=== PATIENT | female | born 1980 | race Caucasian/White ===

== ENCOUNTER 2019-10-27 14:36 | Outpatient (CLI) | payer OTHER, SELFPAY ==
--- NOTE | ~2019-10-27 | MM_ITS ---
EXAMINATION: MM screening kwan BI w marianela HISTORY: Screening mammogram TECHNIQUE: Craniocaudal and mediolateral oblique 3-D tomosynthesis images were obtained and synthetic 2-D images were generated. CAD analysis was submitted and interpreted. COMPARISON: 10/2018 bilateral digital screening mammogram examination 06/13/2017 diagnostic left digital mammogram and limited left breast ultrasound 06/09/2017 bilateral digital screening mammogram examination BREAST PARENCHYMAL COMPOSITION: The breasts are heterogeneously dense, which may obscure small masses . FINDINGS: There is no evidence of suspicious mass, calcification, or architectural distortion to sugg est malignancy in either breast. There has been no suspicious interval change. IMPRESSION: 1. No mammographic evidence of malignancy. 2. Recommend routine screening mammography in one year. BI-RADS Category 1: Negative Reviewed, dictated and finalized at location A.
== END 2019-10-27 14:37 | disposition home or self-care (01) ==
PROVIDERS: PCP Family Medicine; Visit Provider Obstetrics & Gynecology
DX: Z12.31 Encounter for screening mammogram for malignant neoplasm of breast (principal)
CPT/HCPCS: 77063; 77067

== ENCOUNTER 2019-12-25 03:02 | Emergency (ER) | payer OTHER, SELFPAY ==
--- NOTE | ~2019-12-25 | XR_ITS ---
EXAMINATION: XR finger 1st LT min 2V INDICATION: Left first MCP joint dislocation status post reduction TECHNIQUE: Two views of the left first finger are obtained. COMPARISON: 0336 hours FINDINGS: The dorsal dislocation of the first proximal phalanx with respect to the first metacarpal h as been reduced. No fracture is identified. Soft tissue swelling is present. IMPRESSION: 1. Reduced first MCP joint dislocation. No fracture identified. Reviewed, dictated and finalized at location A.
--- NOTE | ~2019-12-25 | XR_ITS ---
EXAMINATION: XR finger 1st LT min 2V INDICATION: Right first finger pain and deformity, initial encounter TECHNIQUE: Two views of the left first finger are obtained. COMPARISON: None available FINDINGS: There is dorsal dislocation of the first proximal phalanx with respect to the first metacar pal. Soft tissue swelling is present. No fracture is identified. IMPRESSION: 1. Dorsal dislocation of the first proximal phalanx with respect to the metacarpal. No fracture ident ified. Reviewed, dictated and finalized at location A. IMPRESSION: 1. Dorsal dislocation of the first proximal phalanx with respect to the metacar pal. No fracture identified.
[2019-12-25 03:05] VITALS: BP 138/98; PULSE 110; RESP 20; TEMP 37; O2SAT 100
--- NOTE | 2019-12-25 03:11 | ED.UPPEXIN ---
HPI - Extremity Injury (Upper) General Chief Complaint: Extremity Injury, Upper Stated Complaint: left thumb injury Time Seen by Provider: 12/25/19 03:07 History of Present Illness HPI narrative: Patient is a 39-year-old female who presents ER with left thumb pain. Patient was some gas at her home who would come over to drink when she injured her thumb. Is an aching pain. No numbness or tingling. There is visible deformity. Related Data Home Medications Medication Instructions Recorded Confirmed ibuprofen 600 mg tablet 600 mg PO TID 06/29/19 melatonin 10 mg capsule PO 06/29/19 Allergies Allergy/AdvReac Type Severity Reaction Status Date / Time No Known Allergies Allergy Verified 12/25/19 03:09 Review of Systems Musculoskeletal: Musculoskeletal: Reports arthralgias and Reports joint swelling Neurologic: Denies focal weakness and Denies numbness PMFSH Social History Social History Smoking status: Former smoker Second hand tobacco smoke exposure: No Alcohol intake: current Drinks per week: 3 Substance use: never Exam Narrative: Exam Narrative: GENERAL: Well-appearing, well-nourished, and in no acute distress. HEAD: Normocephalic, atraumatic. EXTREMITIES: Focused exam left upper extremity shows deformity at the left first MCP with tenderness and no tenderness distal to this. There is no wrist pain or limitation in wrist range of motion. Patient has difficulty with range of motion at the first MCP and has discomfort at the DIP due to first MCP deformity. SKIN: Warm, dry, no rash. NEURO: No focal deficits. Alert and oriented x3. PSYCH: Normal mood and affect. Course Vital Signs Vital signs: Vital Signs Temperature 98.6 F 12/25/19 03:05 Pulse Rate 110 H 12/25/19 03:05 Respiratory Rate 12/25/19 03:05 Blood Pressure 138/98 H 12/25/19 03:05 Pulse Oximetry 100 12/25/19 03:05 Temperature 98.6 F 12/25/19 03:05 Pulse Rate 110 H 12/25/19 03:05 Respiratory Rate 12/25/19 03:05 Blood Pressure 138/98 H 12/25/19 03:05 Pulse Oximetry 100 12/25/19 03:05 Procedures Orthopedic Joint Reduction Joint #1: Orthopedic Joint Reduction Date: 12/25/19 Orthopedic Joint Reduction Time: 03:30 Time Out Performed: No Side: left Joint Reduction Location: finger (thumb) Pre-Procedure Neuro Vascular Exam: normal Technique used: direct manipulation Post-reduction neuro exam: intact Post-reduction vascular: intact Post Reduction X-Ray Obtained: Yes Post Reduction X-Ray Results: reduced Splint Applied: Yes Patient Tolerated Procedure: well Orthopedic Splinting/Casting Injury #1: Splinting/Casting Date: 12/25/19 Side: left Upper Extremity Injury Location: finger (thumb) Splint: customized in ED OCL: thumb spica Pre-Procedure Neuro Vascular Exam: normal Post-Procedure Neuro Vascular Exam: normal MDM - Extremity Injury (Upper) Imaging Data My impression: XR thumb left: Dislocation of MCP XR thumb left reduction: Successful reduction. Discharge Plan Discharge Clinical Impression: Closed dislocation of left thumb Patient Disposition: Home, Self-Care Condition: Stable Instructions: Finger Dislocation (ED) Additional Instructions: Follow-up with orthopedic surgery for further evaluation and to be cleared to go back to work. Return the ER if you suffer new injury, you have a cold blue thumb, you have additional concerns. Prescriptions: New hydrocodone-acetaminophen 5-325 mg tablet 1 tablet PO Q6H PRN (Reason: pain) Qty: 12 RF: 0 No Action Gardasil 9 (PF) 0.5 mL suspension 0.5 ml IM ONCE Qty: 0.5 RF: 2 ibuprofen 600 mg tablet 600 mg PO TID RF: 0 melatonin 10 mg capsule PO RF: 0 Follow-up/Referrals: Riana Scott MD [Primary Care Provider] -
[2019-12-25] MEDS: ONDANSETRON INJ 4 MG/2 ML VIAL (03:36)
[2019-12-25] MEDS: MORPHINE SULFATE 4 MG/ML INJ IV PUSH (03:36)
[2019-12-25 04:24] VITALS: BP 138/90; PULSE 80; RESP 20; O2SAT 98
== END 2019-12-25 04:25 | disposition home or self-care (01) ==
PROVIDERS: Emergency Provider Emergency Medicine; PCP Family Medicine
DX: S63.115A Dislocation of metacarpophalangeal joint of left thumb, initial encounter (principal); Z87.891 Personal history of nicotine dependence; X58.XXXA Exposure to other specified factors, initial encounter
CPT/HCPCS: 26700; 26770; 73140; 99285; J2270; J2405

== ENCOUNTER → 2020-04-26 12:23 | Outpatient (CLI) | payer OTHER, SELFPAY ==
--- NOTE | ~2020-04-26 | XR_ITS ---
EXAMINATION: XR thoracic spine 2V DATE: 04/26/2020 13:01 INDICATION: Dorsalgia unspecified TECHNIQUE: AP, lateral and lateral swimmer's views of the thoracic spine were obtained. COMPARISON: 05/08/2015 FINDINGS: There is no fracture, dislocation, or subluxation. The vertebral body heights are normal. T here is unchanged mild loss of intervertebral disc space height of the lower thoracic spine. Small de generative osteophytes project from the anterior endplates of multiple vertebral bodies. The paravert ebral soft tissues are unremarkable. IMPRESSION: 1. Mild thoracic spondylosis without acute findings or significant interval change. Reviewed, dictated and finalized at location A. LE END SEWER IMPRESSION: 1. Mild thoracic spondylosis without acute findings or significant interval trev e.
--- NOTE | ~2020-04-26 | XR_ITS ---
EXAMINATION: XR hip LT min 2V EXAM DATE: 04/26/2020 13:01 INDICATION: M25.559 - Pain in unspecified hip . TECHNIQUE: Left hip frontal, 'frog leg' projections for interpretation. There is no prior study for comparison. FINDINGS: Smooth left hip femoral head contour, no radiographic evidence of avascular necrosis. Ther e is mild primary osteoarthritis. There are no acute fractures or dislocations identified. There is no subcutaneous gas. The soft tissue is unremarkable. IUD. IMPRESSION: Mild left hip osteoarthritis. Reviewed, dictated and finalized at location B. T CHIEF
--- NOTE | ~2020-04-26 | XR_ITS ---
EXAMINATION: XR lumbar spine 2-3V DATE: 04/26/2020 13:01 INDICATION: Dorsalgia unspecified TECHNIQUE: Anteroposterior and lateral views of the lumbar spine, and cone-down lateral view of the l umbosacral junction were obtained. COMPARISON: 05/03/2014 FINDINGS: There is no fracture, dislocation, or subluxation. Chronic mild loss of intervertebral disc space height at L5-S1 is unchanged. The vertebral body heights are maintained. There is mild facet o steoarthritis of the lower lumbar spine. An IUD is noted in the pelvis. The bowel gas pattern is norm al. IMPRESSION: 1. Mild lumbar spondylosis without acute findings or significant interval change. Reviewed, dictated and finalized at location A. ER WASHER IMPRESSION: 1. Mild lumbar spondylosis without acute findings or significant interval osito martin
== END ==
PROVIDERS: PCP Family Medicine; Visit Provider Physician Assistant
DX: M47.894 Other spondylosis, thoracic region (principal); M47.896 Other spondylosis, lumbar region; M16.12 Unilateral primary osteoarthritis, left hip
CPT/HCPCS: 72070; 72100; 73502

== ENCOUNTER 2021-04-30 10:09 | Outpatient (CLI) | payer OTHER, SELFPAY ==
--- NOTE | ~2021-04-30 | US_ITS ---
EXAMINATION: US abdomen complete EXAM DATE: 04/30/2021 11:15 INDICATION: Abdominal pain. TECHNIQUE: Multiple grayscale and Doppler images of the complete abdomen were obtained (by a technolo gist who performed the scan) and subsequently reviewed. There is no prior study for comparison. FINDINGS: The abdominal aorta is normal in caliber. Visualized portion IVC is patent. The pancreatic head a nd body are normal in appearance. The pancreatic tail is not visualized. The liver has normal echogenicity and contour. There are no focal liver lesions identified. There is no evidence of intrahepatic biliary duct dilation. Portal venous flow was seen in the hepatopedal , normal direction and has normal Doppler waveform. Common bile duct measures 6 mm, which is normal. The gallbladder wall is normal in thickness, with ex pected amount of distention. No sonographic evidence of pericholecystic fluid. There is no cholelit hiases. Technologist performing exam reports patient did not demonstrate sonographic Marquez's sign. Please note that this sign is less reliable in patients who have received pain medication. Right kidney: There is normal contour and echogenicity. It measures 10.3 x 5.3 x 4.6 centimeters. There are no focal renal lesions identified. There is no hydronephrosis. Left kidney: There is normal contour and echogenicity. It measures 10.4 x 4.4 x 5.3 centimeters. T here are no focal renal lesions identified. There is no hydronephrosis. The spleen measures 10.8 centimeters and is morphologically normal. IMPRESSION: 1. Unremarkable complete abdominal ultrasound exam. Reviewed, dictated and finalized at location B. NDARY ENGLISH TEACHER
== END 2021-04-30 10:10 | disposition home or self-care (01) ==
LOC: ANHIMG 10:14
PROVIDERS: PCP Family Medicine; Visit Provider Physician Assistant
DX: R10.9 Unspecified abdominal pain (principal)
CPT/HCPCS: 76700

== ENCOUNTER 2021-06-09 09:08 | Outpatient (CLI) | payer OTHER, SELFPAY ==
--- NOTE | ~2021-06-09 | MM_ITS ---
EXAMINATION: MM screening kwan BI w marianela HISTORY: Screening TECHNIQUE: Craniocaudal and mediolateral oblique 3-D tomosynthesis images were obtained and synthetic 2-D images were generated. CAD analysis was submitted and interpreted. COMPARISON: Comparison to multiple prior studies sequentially, with oldest reviewed study dated 09/2017. BREAST PARENCHYMAL COMPOSITION: The breasts are heterogeneously dense, which may obscure small masses . FINDINGS: There is no evidence of suspicious mass, calcification, or architectural distortion to sugg est malignancy in either breast. There has been no suspicious interval change. IMPRESSION: 1. No mammographic evidence of malignancy. 2. Recommend routine screening mammography in one year. BI-RADS Category 1: Negative Reviewed, dictated and finalized at location A. RESEARCH
== END 2021-06-09 09:09 | disposition home or self-care (01) ==
LOC: ANHIMG 09:09
PROVIDERS: PCP Family Medicine; Visit Provider Student in an Organized Health Care Education/Training Program
DX: Z12.31 Encounter for screening mammogram for malignant neoplasm of breast (principal)
CPT/HCPCS: 77063; 77067

== ENCOUNTER 2021-07-30 14:24 | Outpatient (CLI) | payer OTHER, SELFPAY ==
--- NOTE | ~2021-07-30 | CT_ITS ---
EXAMINATION: CT abdomen pelvis w con EXAM DATE: 07/30/2021 14:57 INDICATION: Intermittent right-sided abdominal pain for couple of years. TECHNIQUE: Spiral CT of the abdomen and pelvis was performed following intravenous injection of 100 m L Omnipaque 350. Axial, coronal and sagittal images of the abdomen and pelvis were reviewed. The do se-length product (DLP) for this examination was 900.30 mGy-cm. The exposure was tailored according to patient size (auto mA exposure control), and iterative reconstruction (ASIR) was used as additiona l dose reduction technique. There is no prior study for comparison. FINDINGS: The liver, spleen, adrenal glands and pancreas are unremarkable. Gallbladder is unremarkab le. No biliary obstruction. Portal and splenic veins are patent. Kidneys enhance symmetrically. T here is no hydronephrosis. The uterus is unremarkable. The bladder is unremarkable. There is no retroperitoneal or pelvic lymphadenopathy. The appendix is normal. The stomach and small bowel are unremarkable. There is expected amount of c olonic stool. No free intraperitoneal gas. The heart is normal in size. There are no pericardial or pleural effusions. The lung bases are unremarkable. Mild lumbar dextroscoliosis. IMPRESSION: No acute intra-abdominal findings. Reviewed, dictated and finalized at location B.
== END 2021-07-30 14:25 | disposition home or self-care (01) ==
PROVIDERS: PCP Family Medicine; Visit Provider Physician Assistant
DX: R10.9 Unspecified abdominal pain (principal)
CPT/HCPCS: 74177; Q9967

== ENCOUNTER → 2021-12-12 14:55 | Outpatient (CLI) | payer OTHER, SELFPAY ==
--- NOTE | ~2021-12-12 | CT_ITS ---
EXAMINATION: CT BRAIN W/O DATE: 12/12/2021 15:09 INDICATION: Blepharospasm of the left eye. Left-sided headache. TECHNIQUE: Computed tomography (CT) of the head was performed without intravenous contrast. The dose- length product was 599.57 mGy-cm. Automated exposure control and iterative reconstruction technique w ere employed. COMPARISON: No prior studies for comparison. FINDINGS: Normal brain parenchymal volume for age. Normal fulton-white differentiation. No acute intrac ranial hemorrhage, infarction, mass or mass effect. No ventriculomegaly or midline shift. Midline sagittal images demonstrate a normal corpus callosum, c raniovertebral junction and sella turcica. Basilar cisterns are patent. Paranasal sinuses and mastoids are pneumatized. No depressed skull fractures. IMPRESSION: 1. No acute intracranial abnormality. Reviewed, dictated and finalized at location A.
== END ==
PROVIDERS: PCP Family Medicine; Visit Provider Physician Assistant
DX: G24.5 Blepharospasm (principal)
CPT/HCPCS: 70450

== ENCOUNTER 2022-01-31 07:19 | Outpatient (CLI) | payer OTHER, SELFPAY ==
[2022-01-31 08:07] LABS: Beta HCG Quantitative < 2.39 mIU/ML
== END 2022-01-31 07:20 | disposition home or self-care (01) ==
PROVIDERS: PCP Family Medicine; Visit Provider Student in an Organized Health Care Education/Training Program
DX: Z30.431 Encounter for routine checking of intrauterine contraceptive device (principal)
CPT/HCPCS: 36415; 84702

== ENCOUNTER 2022-09-18 09:01 | Outpatient (CLI) | payer OTHER, SELFPAY ==
--- NOTE | ~2022-09-18 | MM_ITS ---
EXAMINATION: MM screening kwan BI w marianela HISTORY: Screening mammogram TECHNIQUE: Craniocaudal and mediolateral oblique 3-D tomosynthesis images were obtained and synthetic 2-D images were generated. CAD analysis was submitted and interpreted. COMPARISON: 06/09/2021, 10/27/2019, 10/06/2018 BREAST PARENCHYMAL COMPOSITION: The breasts are heterogeneously dense, which may obscure small masses . FINDINGS: RIGHT BREAST: There is possible architectural distortion in the posterior third of the right breast b est appreciated in line with the nipple axis on the craniocaudal view near the posterior fibroglandul ar margin. LEFT BREAST: No suspicious mass, calcification, or architectural distortion are identified to suggest malignancy. There has been no suspicious interval change. IMPRESSION: 1. Possible right breast architectural distortion. 2. Additional mammographic views and possible breast ultrasound are recommended. BI-RADS Category 0: Incomplete: Needs additional imaging evaluation. Reviewed, dictated and finalized at location A. IMPRESSION: 1. Possible right breast architectural distortion. 2. Additional mammographic views and possible breast ultrasound are recommended . BI-RADS Category 0: Incomplete: Needs additional imaging evaluation.
== END 2022-09-18 09:02 | disposition home or self-care (01) ==
LOC: ANHIMG 09:02
PROVIDERS: PCP Family Medicine; Visit Provider Registered Nurse
DX: Z12.31 Encounter for screening mammogram for malignant neoplasm of breast (principal); R92.8 Other abnormal and inconclusive findings on diagnostic imaging of breast
CPT/HCPCS: 77063; 77067

== ENCOUNTER 2022-09-24 09:47 | Outpatient (CLI) | payer OTHER, SELFPAY ==
--- NOTE | ~2022-09-24 | MMUS_ITS ---
EXAMINATION: MM diagnostic kwan RT w marianela, US breast RT limited HISTORY: Possible right breast architectural distortion on screening mammogram TECHNIQUE: Additional 3-D tomosynthesis images of the right breast were performed and synthetic 2-D i mages were generated. CAD analysis was submitted and interpreted. High resolution limited right breas t ultrasound was performed. COMPARISON: 09/18/2022, 06/09/2021, 10/27/2019, 10/06/2018 FINDINGS: MAMMOGRAPHIC FINDINGS: There is persistent architectural distortion with possible obscured mass in the posterior third of th e upper breast at the 12:00 location approximately 11 cm from the nipple. ULTRASOUND: There is a 9 mm x 6 mm oval, parallel, hypoechoic mass with indistinct margins at the 1:00 location 9 cm from the nipple. No posterior features or internal vascularity are identified. There is a probabl e cluster of microcysts measuring 6 mm at the 11:00 location, 7 cm from the nipple. IMPRESSION: 1. Indeterminate mass of the posterior right breast. 2. Ultrasound-guided biopsy is recommended. BI-RADS category 4, suspicious findings. Reviewed, dictated and finalized at location A. IMPRESSION: 1. Indeterminate mass of the posterior right breast. 2. Ultrasound-guided biopsy is recommended. BI-RADS category 4, suspicious findings.
== END 2022-09-24 09:48 | disposition home or self-care (01) ==
LOC: CHSIMG 09:48
PROVIDERS: PCP Family Medicine; Visit Provider Registered Nurse
DX: R92.8 Other abnormal and inconclusive findings on diagnostic imaging of breast (principal)
CPT/HCPCS: 76642; 77061; 77065; G0279

== ENCOUNTER 2022-10-28 09:02 | Outpatient (CLI) | payer OTHER, SELFPAY ==
--- NOTE | ~2022-10-28 | MMUS_ITS ---
EXAMINATION: US GUIDED NEEDLE BIOPSY DATE: 10/28/2022 11:17 CDT INDICATION: 9 x 6 mm oval parallel hypoechoic mass with indistinct margins reported at 1:00 9 cm from nipple (09/24/2022 limited right breast ultrasound) TECHNIQUE AND FINDINGS: The risks and potential benefits of the procedure were discussed with the patient, and written inform ed consent was obtained. Timeout procedure was performed. After sterile preparation of the right jarek st, 1% lidocaine was utilized for local anesthesia. A 12 G spring-loaded biopsy gun needle was advanced to the edge of the region of interest from a late ral approach utilizing sonographic guidance. A total of 2 tissue core samples were obtained through the lesion. The lesion disappeared after the biopsy, with no remaining trace, suggesting this was a c yst. A hydrogel marker was then placed at the biopsy site. Hemostasis was achieved. A sterile bandage was applied. The patient tolerated procedure well and there was no evidence of immediate complication. The patien t was given verbal instructions prior to departing from the department. A two view mammogram was perf ormed to document tissue marker clip placement. The tissue samples were submitted to surgical patholo gy for histologic analysis. IMPRESSION: Ultrasound guided biopsy of right 1:00 breast mass (likely cyst) with biopsy marker placement. Please refer to pathology report for histologic analysis. Reviewed, dictated and finalized at Location A. Reviewed, dictated and finalized at location A. IMPRESSION: Ultrasound guided biopsy of right 1:00 breast mass (likely cyst) with biopsy ma rker placement. Please refer to pathology report for histologic analysis.
== END 2022-10-28 09:03 | disposition home or self-care (01) ==
PROVIDERS: PCP Family Medicine; Visit Provider Surgery
DX: R92.8 Other abnormal and inconclusive findings on diagnostic imaging of breast (principal); N60.11 Diffuse cystic mastopathy of right breast
CPT/HCPCS: 19083; 88305

== ENCOUNTER 2023-04-01 13:55 | Outpatient (CLI) | payer OTHER, SELFPAY ==
--- NOTE | ~2023-04-01 | US_ITS ---
US breast RT limited DATE: 04/01/2023 14:52 INDICATION: Short-term follow-up of previously biopsied 9 x 6 mm oval hypoechoic mass with indistinct margins at 1:00 9 cm from nipple, with benign cyst diagnosis and pathology TECHNIQUE: Real-time imaging targeted at 1:00 9 cm from nipple, with color flow imaging COMPARISON: 10/28 2022 right ultrasound-guided breast biopsy 09/24/2022 limited right breast ultrasound FINDINGS: There is a residual approximately 4 x 7 mm hypoechoic lesion remaining with a biopsy marker centrally located. There is no internal vascularity or suspicious posterior shadowing. IMPRESSION: Diminished size of previously biopsied 1:00 lesion 9 cm from nipple, with tissue marker c lip. No suspicious vascularity or suspicious shadowing. Reviewed, dictated and finalized at Location A. Reviewed, dictated and finalized at location A. HT SHIFTER IMPRESSION: Diminished size of previously biopsied 1:00 lesion 9 cm from nipple , with tissue marker clip. No suspicious vascularity or suspicious shadowing.
== END 2023-04-01 13:56 | disposition home or self-care (01) ==
PROVIDERS: PCP Family Medicine; Visit Provider Surgery
DX: R92.8 Other abnormal and inconclusive findings on diagnostic imaging of breast (principal)
CPT/HCPCS: 76642

== ENCOUNTER 2023-07-10 14:27 | Outpatient (CLI) | payer OTHER, SELFPAY ==
--- NOTE | ~2023-07-10 | CT_ITS ---
EXAMINATION: CT brain wo con DATE: 07/10/2023 14:40 INDICATION: Headache, unspecified. TECHNIQUE: Computed tomography (CT) of the head was performed without intravenous contrast. The mA wa s adjusted according to patient size. Iterative reconstruction technique was employed. The dose-lengt h product was 645.69 mGy-cm. COMPARISON: Head CT 12/12/2021 FINDINGS: There is no intracranial hemorrhage, acute infarction, or abnormal intracranial mass lesion . The ventricles are normal in size. There are likely changes of ocular lens replacement surgeries. T he paranasal sinuses are clear. The mastoid air cells are normal. IMPRESSION: 1. Normal brain. Reviewed, dictated and finalized at location E. NICAL HEALTHCARE CONSULTANT IMPRESSION: 1. Normal brain.
== END 2023-07-10 14:28 ==
LOC: GOSHIMG 14:29
PROVIDERS: PCP Family Medicine; Visit Provider Physician Assistant Medical
DX: R51.9 Headache, unspecified (principal)
CPT/HCPCS: 70450

== ENCOUNTER 2023-10-20 06:43 | Outpatient (CLI) | payer OTHER, SELFPAY ==
--- NOTE | ~2023-10-20 | MR_ITS ---
EXAMINATION: MR brain/brain stem wo/w con DATE: 10/20/2023 07:31 INDICATION: Headache. TECHNIQUE: Magnetic resonance imaging (MRI) of the brain and brainstem was performed without and with 15 mL MultiHance intravenous contrast. COMPARISON: Head CT 07/10/2023 FINDINGS: There is no intracranial hemorrhage, acute infarction, or abnormal intracranial mass lesion . The ventricles are normal in size. There are likely changes of ocular lens replacement surgeries. T he paranasal sinuses are clear. The mastoid air cells are normal. IMPRESSION: 1. Normal brain. Reviewed, dictated and finalized at location E. IMPRESSION: 1. Normal brain.
== END 2023-10-20 06:44 | disposition home or self-care (01) ==
PROVIDERS: PCP Family Medicine
DX: R51.9 Headache, unspecified (principal)
CPT/HCPCS: 70553; A9577

== ENCOUNTER 2024-03-25 14:52 | Outpatient (CLI) | payer OTHER, SELFPAY ==
--- NOTE | ~2024-03-25 | MM_ITS ---
EXAMINATION: MM screening kwan BI w marianela HISTORY: Screening mammography. Prior right-sided breast biopsy yielding benign results. Exogenous hormone replacement. TECHNIQUE: Craniocaudal and mediolateral oblique 3-D tomosynthesis images were obtained and synthetic 2-D images were generated. CAD analysis was submitted and interpreted. COMPARISON: Examination was compared with multiple prior studies, performed most recently on 3 and dating back to 10/27/2019 BREAST PARENCHYMAL COMPOSITION: Heterogeneously dense FINDINGS: Microclip within the lower inner right breast consistent with patient's history. Punctate calcifications are detected bilaterally, stable and benign in appearance. Stable parenchymal pattern without suspicious microcalcifications, architectural distortion, discrete masses or significant asymmetry. IMPRESSION: 1. No mammographic evidence of malignancy. 2. Recommend routine screening mammography in one year. BI-RADS Category 2: Benign findings. Reviewed, dictated and finalized at location A. TER INSPECTOR
== END 2024-03-25 14:53 | disposition home or self-care (01) ==
LOC: ANHIMG 14:53
PROVIDERS: PCP Family Medicine; Visit Provider Obstetrics & Gynecology
DX: Z12.31 Encounter for screening mammogram for malignant neoplasm of breast (principal)
CPT/HCPCS: 77063; 77067

== ENCOUNTER 2024-05-22 10:23 | Outpatient (CLI) | payer OTHER, SELFPAY ==
--- NOTE | 2024-05-22 10:54 | ECG_ITS ---
Test Date: 2024-05-22 11:23:11 Measurements Intervals [place] Rate: 70 P: -5 ME: 144 QRS: 5 QRSD: 93 T: 11 QT: 379 QTc: 409 Interpretive Statements SINUS RHYTHM LOW QRS VOLTAGE IN PRECORDIAL LEADS [QRS DEFLECTION < 1.0 mV IN CHEST LEADS] No previous ECG available for comparison Electronically Signed On 05-23-2024 09:54:57 HAM SMOKER by Tod Delarosa M.D.
[2024-05-22 11:28] LABS: Add Urine Microscopic? YES; Appearance Urine Clear (Clear); Bacteria Urine None Seen /hpf; Bilirubin Urine Negative (Negative); Blood Urine 3+ (Negative); Color Urine Yellow (Yellow); Glucose Urine UA Negative (Negative); Ketones Urine Negative (Negative); Leukocyte Esterase Ur Trace LEU/UL (Negative); Nitrate Urine Negative (Negative); Non Pathogenic Casts 0-2; Protein Urine Negative (Negative); RBC Urine 21-50 /hpf (0-2); Specific Grav Ur 1.022 (1.001-1.035); Squamous Epithelial Cell Urine None Seen /hpf (Few); Urobilinogen Urine 0.2 mg/dL (<2.0); WBC Urine 0-5 /hpf (0-3)
[2024-05-22 11:30] LABS: Basophils Absolute Auto 0.1 K/mm3 (0.0-0.1); Basophils Percent Auto 1.2 % (0.2-1.2); Eosinophils Absolute Auto 0.1 K/mm3 (0-0.3); Eosinophils Percent Auto 2.1 % (0-4.4); Hematocrit 41.5 % (37.0-47.0); Hemoglobin 13.7 g/dL (12.0-15.0); Immature Granulocyte Absolute 0.01 K/mm3 (0.00-0.031); Immature Granulocyte Percent A 0.2 % (0-0.5); Lymphocytes Absolute Auto 2.35 K/mm3 (0.9-3.2); Mean Corpuscular Hemoglobin 31.3 pg (26-34); Mean Corpuscular Volume 94.7 fl (80-100); Mean Platelet Volume 9.9 fl (7.4-10.4); Monocytes Absolute Auto 0.4 K/mm3 (0.1-0.6); Monocytes Percent Auto 7.3 % (2.6-8.5); Neutrophils Absolute Auto 2.8 K/mm3 (1.3-6.7); Neutrophils Percent Auto 48.2 % (45.5-73.1); Platelet Count Result 287 k/mm3 (150-375); Red Blood Count 4.38 M/mm3 (4.2-5.4); White Blood Count 5.7 K/mm3 (4.5-10.0)
[2024-05-22 11:45] LABS: Alanine Aminotransferase 14 U/L (6-35); Alkaline Phosphatase 50 U/L (38-126); Anion Gap 5 mmol/L (4-12); Aspartate Amino Transferase 17 U/L (14-36); Bilirubin,Total 0.6 mg/dL (0.2-1.3); Blood Urea Nitrogen 13 mg/dL (7-17); Carbon Dioxide 29 mmol/L (22-30); Chloride 104 mmol/L (98-107); Estimated Glomerular Filt Rate > 60; Glucose 77 mg/dL (65-110); Potassium 4.4 mmol/L (3.4-5.0); Sodium 138 mmol/L (137-145)
--- OUTSIDE RECORDS SUMMARY | 2024-05-27 08:50 | XMS_ITS | Clinical Summary ---
Author Organization [facility] Address [address] [place] [address] Phone Care Team Providers Care Shoe Fitter Name Role Phone Riana Scott MD Primary Care Provider [phone] Allergies No known active allergies Medications medroxyPROGEST ERone (DEPO-PROVERA) 150 mg/mL Syringe Inject 150 mL by intramuscular injection. 2 Active Virt-Jeannette 2.2-25-1 mg Tablet Take 1 Tablet by mouth 2 times daily. 2 Active Active Problems No known active problems Family History Medical History Relation Name Comments Cancer Mother Relation Name Status Comments Mother Social History Tobacco Use Types Packs/Day Years Used Date Smoking Tobacco: Former Cigarettes Q uit: 2016 Smokeless Tobacco: Never Tobacco Cessation:Counseling Given: No Alcohol Use Standard Drinks/Week Comments Yes 0 (1 standard drink = 0.6 oz pur e alcohol) 6-7 drinks every couple weeks Comments Unknown Sex and Gender Information Value Date Recorded Sex Assigned at Not on file Legal Sex Female 3:16 PM CDT Gender Identity Not on file Sexual Orientation Not on file Last Filed Vital Signs Vital Sign Reading Time Taken Comments Blood Pressure 169/111 03/27/2022 11:30 AM [facility] Pulse 86 03/27/2022 11:30 AM [facility] Temperature - - Respiratory Rate - - Oxygen Saturation - - Inhaled Oxygen Concentration - - Weight 97.5 kg (215 lb) 03/27/2022 11:30 AM [facility] Height 160 cm (5' 3 ) 03/27/2022 11:30 AM [facility] Body Mass Index 38.09 03/27/2022 11:30 AM [facility] Plan of Treatment Health Maintenance Due Date Last Done Comments DTAP/TDAP/TD VACCINES (1 - Tdap) 1997 HEPATITIS B VACCINES (1 of 3 - 19+ 3-dose series) 1997 CERVICAL CANCER SCREENING 2008 BREAST CANCER SCREENING 2018 COLORECTAL SCREENING 2023 Colorectal Cancer Screening 2023 FIT-DNA Q 3 years 2023 FIT/FOBT Q 1 year 2023 Flex Sig/CT Colonography Q 5 years 2023 INFLUENZA VACCINE (#1) 2023 HPV VACCINES Aged Out No longer eligi ble based on patient's age to complete this topic PNEUMOCOCCAL VACCINE 0-64 YEARS Aged Out No longer eligible based on patient's age to complete this topic Insurance [facility] [id number] POS II Care Teams Shoe Fitter Relationship Specialty Start Date End Date Riana Scott MD [address] [place] [address] PCP - General Family Practice 03/27/22
--- OUTSIDE RECORDS SUMMARY | 2024-05-27 08:50 | XMS_ITS | Referral Summary ---
Author Organization [facility] Address [address] [place] [address] Care Team Providers Care Shipwright Helper Name Role Phone Riana Scott MD Primary Care Provider [phone] Paige Drew Kahnton OD Unavailable [phone] Verena Rand FILTROSE CRUSHER Unavailable Encounters Date Type Department Care Team Description 05/03/2024 1:36 PM LAB HEAD - 05/03/2024 11:59 PM LAB HEAD Hospital Encounter [facility] [address] [place] [address] Rad, Amh Fluoro Right shoulder pain, unspecified chronicity Discharge Disposition: Discharge to home or self care 05/03/2024 1:37 PM LAB HEAD - 05/03/2024 11:59 PM LAB HEAD Hospital Encounter [facility] [address] [place] [address] Right shoulder pain, unspecified chronicity Discharge Disposition: Discharge to home or self care 04/13/2024 Telephone [facility] [address] [place] [address] Outpatient Health [address] [place] [phone] Callie Kent MD 04/05/2024 Telephone [facility] [address] [place] [address] [phone] Callie Kent MD 03/26/2024 11:00 AM LAB HEAD Lab [facility] [address] [place] [address] [place] [address] Visual disturbances 03/26/2024 8:45 AM LAB HEAD Office Visit [facility] [address] [phone] Callie Kent MD Visual disturbances (Primary Dx); Anomalous optic nerve (HCC); Frequent headaches; Unspecified disorder of visual pathways; Encounter for observation for other suspected diseases and conditions ruled out 03/26/2024 8:20 AM LAB HEAD Imaging Exam [facility] [address] [place] [phone] Optic disc edema (Primary Dx); Frequent headaches; Unspecified disorder of visual pathways; Encounter for observation for other suspected diseases and conditions ruled out 03/18/2024 Telephone [facility] [address] [place] [address], [address] [place] [address] Callie Kent MD from Last 3 Months Allergies No known active allergies Medications oxyBUTYnin XL (DITROPAN-XL) 10 mg 24 hr tablet Take 1 tablet (10 mg total) by mouth daily 12/08/2023 Active tirzepatide (MOUNJARO) 12.5 mg/0.5 mL pen injector Inject 12.5 mg under the skin every 7 days Active Active Problems Problem Noted Date Diagnosed Date Visual disturbances 03/26/2024 Assessment & Plan (03/26/2024 12:04 PM LAB HEAD): Assessment: - Follow-up from 01/07/24 for vision changes OU, reported as blurry vision and seeing dark spots OU. 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 - Excellent afferent function today - RNFL thickness stable OD (116>116) and improved OS (113>101) but could be inter-testing variability especially given stable appearance of the nerves today - No subjective improvement in vision on Topiramate Plan: - Discontinue Topiramate given lack of subjective improvement and subjective vision complaints that are not convincingly attributable to papilledema - Return to clinic in 3-4 months for OCT RNFL and HVF 24-2 OU Frequent headaches 03/26/2024 Assessment & Plan (03/26/2024 11:58 AM LAB HEAD): Assessment: - Likely a component of migraine's and medication overuse - Currently using ibuprofen daily - MRI brain w wo at OSH unremarkable Plan: - Decrease ibuprofen use as medication overuse may be contributing - Evaluation for obstructive sleep apnea; to be arranged by patient's PCP Social History Tobacco Use Types Packs/Day Years Used Date Smoking Tobacco: Never Assessed Comments Unknown Sex and Gender Information Value Date Recorded Sex Assigned at Not on file Legal Sex Female 3:02 AM LAB HEAD Gender Identity Not on file Sexual Orientation Not on file Plan of Treatment Not on file Procedures Procedure Name Priority Date/Time Associated Diagnosis Comments MRI SHOULDER ARTHROGRAM RIGHT W CONTRAST Schedule Routine, Read Routine (OP Routine) 05/03/2024 3:11 PM LAB HEAD Right shoulder pain, unspecified chronicity INJECTION SHOULDER RIGHT ARTHRO ONLY Schedule Routine, Read Routine (OP Routine) 05/03/2024 2:35 PM LAB HEAD Right shoulder pain, unspecified chronicity COPPER, SERUM Routine 03/26/2024 11:03 AM LAB HEAD Visual disturbances FOLATE Routine 03/26/2024 11:03 AM LAB HEAD Visual disturbances METHYLMALONIC ACID, SERUM Routine 03/26/2024 11:03 AM LAB HEAD Visual disturbances VITAMIN B1 Routine 03/26/2024 11:03 AM LAB HEAD Visual disturbances VITAMIN B12 Routine 03/26/2024 11:03 AM LAB HEAD Visual disturbances VITAMIN A Routine 03/26/2024 11:03 AM LAB HEAD Visual disturbances CBC WITHOUT DIFFERENTIAL Routine 03/26/2024 11:03 AM LAB HEAD Visual disturbances IRON PROFILE W/ IBC Routine 03/26/2024 1 1:03 AM LAB HEAD Visual disturbances TOXOPLASMA ANTIBODIES IGG AND IGM Routine 03/26/2024 11:03 AM LAB HEAD Visual disturbances BARTONELLA ANTIBODY PANEL Routine 03/26/2024 11:03 AM LAB HEAD Visual disturbances OCT, RETINA - OU - BOTH EYES Routine 03/26/2024 8:47 AM LAB HEAD Frequent headaches Unspecified disorder of visual pathways Encounter for observation for other suspected diseases and conditions ruled out OCT, OPTIC NERVE - OU - BOTH EYES Routine 03/26/2024 8:47 AM LAB HEAD Frequent headaches Unspecified disorder of visual pathways Encounter for observation for other suspected diseases and conditions ruled out from Last 3 Months Results * MRI Shoulder Arthrogram Right W Contrast (05/03/2024 3:11 PM LAB HEAD) Anatomical Region Laterality Modality Upper Extremities Right Magnetic Reson ance 05/04/2024 5:29 AM LAB HEAD Narrative 05/04/2024 5:37 AM LAB HEAD EXAM DESCRIPTION: MRI SHOULDER ARTHROGRAM RIGHT W CONTRAST REASON FOR STUDY: RIGHT SHOULDER PAIN ?? Pt injured RT shoulder at work approx 1 month ago. Pain with lifting and outstretching arm. ? TECHNIQUE: Multiplanar, multisequence MRI of the ??right ??shoulder was performed ??with intra-articular contrast. Details of the arthrogram injection are dictated separately. ?? COMPARISON: 05/03/2024 FINDINGS: There is a type 1 acromion. The coracoacromial ligament is thin. There is mild acromioclavicular joint osteoarthritis. ??Small distal clavicular erosion with marrow edema is noted. ??Contrast in the subacromial subdeltoid bursa is injection related. The rotator cuff muscle bulk is normal. The subscapularis is intact. The biceps tendon is located within the bicipital groove. The supraspinatus and infraspinatus cuff tendons are intact without evidence of a discrete tear. On this arthrographic evaluation, the bicipital anchor is intact. ??There is a posterior glenoid labral tear extending from approximately 10:30-7:30. There is mild glenohumeral joint chondrosis. ??There are no loose bodies. ?? IMPRESSION: Intact right rotator cuff. Posterior right glenoid labral tear extending from approximately 10:30-7:30. Mild right acromioclavicular joint osteoarthritis with a small distal clavicular erosion and marrow edema. This can be associated with superimposed mild distal clavicular osteolysis. Mild right glenohumeral joint chondrosis. THIS IS AN ELECTRONICALLY VERIFIED FINAL REPORT 05/04/2024 5:37 AM - Electronically signed by ??Rodrigo Bae M.D. MF: [email or web address] D: ??05/04/2024 5:37 AM T: ??05/04/2024 5:37 AM Report ID: [id number] Reading Location: ??[id number] Procedure Note Rodrigo Bae MD - 05/04/2024 EXAM DESCRIPTION: MRI SHOULDER ARTHROGRAM RIGHT W CONTRAST REASON FOR STUDY: RIGHT SHOULDER PAIN Pt injured RT shoulder at work approx 1 month ago. Pain with lifting and outstretching arm. TECHNIQUE: Multiplanar, multisequence MRI of the right shoulder was performed with intra-articular contrast. Details of the arthrograminjection are dictated separately. COMPARISON: 05/03/2024 FINDINGS: There is a type 1 acromion. The coracoacromial ligament is thin. There ismild acromioclavicular joint osteoarthritis. Small distal clavicular erosionwith marrow edema is noted. Contrast in the subacromial subdeltoid bursa is injection related. The rotator cuff muscle bulk is normal. The subscapularis is intact. The biceps tendon is located within the bicipital groove. The supraspinatusand infraspinatus cuff tendons are intact without evidence of a discretetear. On this arthrographic evaluation, the bicipital anchor is intact. Thereis a posterior glenoid labral tear extending from approximately 10:30-7:30.There is mild glenohumeral joint chondrosis. There are no loose bodies. IMPRESSION: Intact right rotator cuff. Posterior right glenoid labral tear extending from [id number]:30-7:30. Mild right acromioclavicular joint osteoarthritis with a small distal clavicular erosion and marrow edema. This can be associated withsuperimposed mild distal clavicular osteolysis. Mild right glenohumeral joint chondrosis. THIS IS AN ELECTRONICALLY VERIFIED FINAL REPORT 05/04/2024 5:37 AM - Electronically signed by Rodrigo Bae M.D. MF: [email or web address] Report ID: [id number] Reading Location: [place] [address] Scott Ontiveros MD IMG MRI PROCEDURES Final Re sult * Injection Shoulder Right Arthro Only (05/03/2024 2:35 PM LAB HEAD) Anatomical Region Laterality Modality Shoulder Right Radio Fluoroscop y 05/04/2024 5:37 AM LAB HEAD Narrative 05/04/2024 5:37 AM LAB HEAD EXAMINATION: ?? Right ??joint injection for arthrography Fluoroscopic guidance for needle placement HISTORY: Right shoulder pain , pre ??MR ??arthrogram TECHNIQUE: The risks, benefits and alternatives were discussed with the patient. ??Informed consent was obtained. ??Prior to beginning the procedure, [place] Protocol was performed to confirm the patient's identity and the planned procedure. The patient was placed on the fluoroscopy table. ??The ??right glenohumeral ?? joint was localized with fluoroscopic guidance. ??The skin was prepped and draped in a standard sterile fashion. ??Using sterile technique, a ??20 ??mL solution was prepared consisting of ??10 ??mL of a 1:100 dilution of Dotarem gadolinium contrast in sterile saline and ??10 ??mL ??Omnipaque 240 . Local anesthesia was achieved with subcutaneous injection of 1% lidocaine 2 mL. ??A 22-gauge needle was then introduced into the joint under fluoroscopic guidance. The intra-articular position of the needle was confirmed with injection of ??12 ??mL of the 1:200 gadolinium contrast, injected with intermittent fluoroscopic visualization. The patient was then transferred to the ??MR ??suite. There are were no immediate complications. RADIATION DOSE: Dose Area Product: ??0.0634 ?? mGym2 dose Area Product (DAP) FINDINGS: Fluoroscopic images confirm intra-articular position of the needle tip with subsequent filling of the joint space. ?? The results of the ??MR ??arthrogram are reported separately. IMPRESSION: Right shoulder ??joint injection under fluoroscopic guidance for ??MR ?? arthrography. ?? THIS IS AN ELECTRONICALLY VERIFIED FINAL REPORT 05/04/2024 5:37 AM - Electronically signed by ??Rodrigo Bae M.D. MF: [email or web address] D: ??05/04/2024 5:37 AM T: ??05/04/2024 5:37 AM Report ID: [id number] Reading Location: ??[id number] Procedure Note Rodrigo Bae MD - 05/04/2024 EXAMINATION: Right joint injection for arthrography Fluoroscopic guidance for needle placement HISTORY: Right shoulder pain , pre MR arthrogram TECHNIQUE: The risks, benefits and alternatives were discussed with the patient. Informed consent was obtained. Prior to beginning theprocedure, [place] Protocol was performed to confirm the patient's identity and the planned procedure. The patient was placed on the fluoroscopy table. The right glenohumeral joint was localized with fluoroscopic guidance. The skin was prepped and draped in a standard sterile fashion. Using sterile technique, a 20 mL solution was prepared consisting of 10 mL of a 1:100 dilution of Dotarem gadolinium contrast in sterile saline and 10 mL Omnipaque 240 . Local anesthesia was achieved with subcutaneous injection of 1% lidocaine2 mL. A 22-gauge needle was then introduced into the joint underfluoroscopic guidance. The intra-articular position of the needle was confirmed with injection of 12 mL of the 1:200 gadolinium contrast, injected with intermittent fluoroscopic visualization. The patient was then transferred to the MR suite. There are were no immediate complications. RADIATION DOSE: Dose Area Product: 0.0634 mGym2 dose Area Product (DAP) FINDINGS: Fluoroscopic images confirm intra-articular position of the needle tipwith subsequent filling of the joint space. The results of the MR arthrogram are reported separately. IMPRESSION: Right shoulder joint injection under fluoroscopic guidance for MR arthrography. THIS IS AN ELECTRONICALLY VERIFIED FINAL REPORT 05/04/2024 5:37 AM - Electronically signed by Rodrigo Bae M.D. MF: ISA Report ID: [id number] Reading Location: [id number] Scott Ontiveros MD IMG XR PROCEDURES Final Res ult * Toxoplasma antibodies, IgG and IgM Blood (03/26/2024 11:03 AM LAB HEAD) Toxoplasma IgG Negative Negative Comment: Interpretive Data Negative - ??No detectable antibody. Equivocal - Presence of detectable antibody cannot be determined. Positive - ??Detectable level of antibody present. Current interpretive data was last revised on 2017. Toxoplasma IgM Negative Negative [facility] Blood 03/26/2024 11:0 3 AM LAB HEAD 03/26/2024 12:41 PM LAB HEAD Callie Kent MD LAB MICROBIOLOGY - GENERAL ORDERABLES Final Result [facility] Department [place] [address] * Iron profile w/ IBC (03/26/2024 11:03 AM LAB HEAD) Pathologist [facility] Iron 59 35 - 145 mcg/dL TIBC 272 250 - 400 mcg/dL [facility] Transferrin saturation 22 20 - 50 % [facility] Blood 03/26/2024 11:0 3 AM LAB HEAD 03/26/2024 12:41 PM LAB HEAD us Callie Kent MD LAB BLOOD ORDERABLES Final Result Performing Organization Address [facility] [place] [address] * Methylmalonic acid, serum (03/26/2024 11:03 AM LAB HEAD) MMA 0.12 <=0.40 nmol/mL [facility] Comment: ADDITIONAL INFORMATION This test was developed and its performance characteristics determined by [facility] in a manner consistent with CLIA requirements. This test has not been cleared or approved by the U.S. Food and Drug Administration. Test Performed by: [facility] [place] [address] Service Agent: Izabela Wellington Ph.D.; CLIA# [id number] Blood 03/26/2024 11:0 3 AM LAB HEAD 03/26/2024 2:25 PM LAB HEAD us Callie Kent MD LAB BLOOD ORDERABLES Final Result Performing Organization Address [facility] de Phone Number ZELDA [facility] [place] [address] [facility] * Copper, serum (03/26/2024 11:03 AM LAB HEAD) Copper 100 77 - 206 mcg/dL [facility] Comment: ADDITIONAL INFORMATION This test was developed and its performance characteristics determined by [facility] in a manner consistent with CLIA requirements. This test has not been cleared or approved by the U.S. Food and Drug Administration. Test Performed by: [facility] [address] [place] [address] Service Agent: Izabela Wellington Ph.D.; CLIA# [id number] Blood 03/26/2024 11:0 3 AM LAB HEAD 03/26/2024 12:53 PM LAB HEAD Narrative [facility] - 03/27/2024 2:32 PM LAB HEAD [place] blue top tube. No additives. Callie Kent MD LAB BLOOD ORDERABLES Final Result Performing Organization Address City/[facility]/ZIP Co de Phone Number [facility] [place] [address] [facility] * Bartonella antibody panel Blood (03/26/2024 11:03 AM LAB HEAD) [facility] B Henselae, IgG <1:128 <1:128 titer [facility] B Henselae, IgM <1:20 <1:20 titer [facility] B. Elizabeth, IgG <1:128 <1:128 titer [facility] B. Elizabeth, IgM <1:20 <1:20 titer [facility] Comment: ADDITIONAL INFORMATION This test was developed and its performance characteristics determined by [facility] in a manner consistent with CLIA requirements. This test has not been cleared or approved by the U.S. Food and Drug Administration. Test Performed by: [facility] [place] [address] Service Agent: Izabela Wellington Ph.D.; CLIA# [id number] Blood 03/26/2024 11:0 3 AM LAB HEAD 03/26/2024 2:25 PM LAB HEAD us Callie Kent MD LAB MICROBIOLOGY - GENERAL ORDERABLES Final Result Performing Organization Address City/[facility] Co de Phone Number [facility] [place] [place] [address] [facility] * Vitamin A (03/26/2024 11:03 AM LAB HEAD) Pathologist [facility] Vitamin A 54.2 32.5 - 78.0 mcg/dL [facility] Comment: ADDITIONAL INFORMATION This test was developed and its performance characteristics determined by [facility] in a manner consistent with CLIA requirements. This test has not been cleared or approved by the U.S. Food and Drug Administration. Test Performed by: [facility] - [facility] [address] [place] [address] Service Agent: Izabela Wellington Ph.D.; CLIA# [id number] Blood 03/26/2024 11:0 3 AM LAB HEAD 03/26/2024 12:53 PM LAB HEAD Callie Kent MD LAB BLOOD ORDERABLES Final Result [facility] Department [place] [address] [facility] * CBC without differential (03/26/2024 11:03 AM LAB HEAD) [facility] WBC 6.6 3.8 - 9.9 K/cumm Hgb 14.2 11.9 - 15.5 g/dL [facility] Hct 41.4 35.6 - 45.5 % [facility] Plt 273 150 - 400 K/cumm [facility] MPV 10.0 9.1 - 12.3 fL [facility] RBC 4.51 3.90 - 5.20 M/cumm [facility] MCV 91.8 81.3 - 96.4 fL [facility] MCH 31.5 27.1 - 33.3 pg [facility] MCHC 34.3 32.3 - 35.7 g/dL [facility] RDW CV 11.8 11.1 - 14.9 % [facility] RDW SD 39.7 35.7 - 48.1 fL [facility] NRBC abs 0.00 0.00 - 0.01 K/cumm [facility] Blood 03/26/2024 11:0 3 AM LAB HEAD 03/26/2024 12:41 PM LAB HEAD us Callie Kent MD LAB BLOOD ORDERABLES Final Result Performing Organization Address City/State/[facility] Co de Phone Number [facility] Department [place] [address] * Vitamin B1 (03/26/2024 11:03 AM LAB HEAD) Thiamine (Vit B1) 171 70 - 180 nmol/L [facility] Comment: ADDITIONAL INFORMATION This test was developed and its performance characteristics determined by [facility] in a manner consistent with CLIA requirements. This test has not been cleared or approved by the U.S. Food and Drug Administration. Test Performed by: [facility] [place] [address] Service Agent: Izabela Wellington Ph.D.; CLIA# [id number] Blood 03/26/2024 11:0 3 AM LAB HEAD 03/26/2024 12:53 PM LAB HEAD us Callie Kent MD LAB BLOOD ORDERABLES Final Result Performing Organization Address [facility] Co de Phone Number ZELDA [facility] Department [place] [address] [facility] * Folate (03/26/2024 11:03 AM LAB HEAD) Folic acid 19.7 >=5.0 ng/mL Blood 03/26/2024 11:0 3 AM LAB HEAD 03/26/2024 12:41 PM LAB HEAD us Callie Kent MD LAB BLOOD ORDERABLES Final Result Performing Organization Address City/[facility] Co de Phone Number [facility] Department [place] [address] * Vitamin B12 (03/26/2024 11:03 AM LAB HEAD) Vitamin B12 733 230 - 1,250 pg/mL Blood 03/26/2024 11:0 3 AM LAB HEAD 03/26/2024 12:41 PM LAB HEAD us Callie Kent MD LAB BLOOD ORDERABLES Final Result [facility] Department [place] [address] * OCT, Retina - OU - Both Eyes (03/26/2024 8:47 AM LAB HEAD) Anatomical Region Laterality Modality Head Other Narrative 03/26/2024 10:01 AM LAB HEAD Right Eye Findings include normal observations. Left Eye Findings include normal observations. Notes Normal mean ganglion cell complex thickness OU (on [employer] OCT) us Callie Kent MD OPHTH TOMOGRAPHY Final Resu lt * OCT, Optic Nerve - OU - Both Eyes (03/26/2024 8:47 AM LAB HEAD) RNFL OS 101 micrometers CONTINUUM RNFL OD 116 micrometers CONTINUUM Anatomical Region Laterality Modality Head Other Narrative 03/26/2024 10:01 AM LAB HEAD Right Eye Reliability was good. Average RNFL thickness 116 micrometers. Left Eye Reliability was good. Average RNFL thickness 101 micrometers. Notes Stable OD, interval decrease OS in mean RNFL thickness (Performed on [employer] OCT) us Callie Kent MD OPHTH TOMOGRAPHY Final Resu lt from Last 3 Months Insurance [employer] Care Teams Shipwright Helper Relationship Specialty Start Date End Date Riana Scott MD PCP - General Family Medicine 10/15/23 Drew Gibson OD [address] [place] [address] Referring Physician Optometry 01/07/24 Verena Rand NP [address] [address] Nurse Practitioner Nurse Practitioner 02/24/24
--- OUTSIDE RECORDS SUMMARY | 2024-05-27 08:50 | XMS_ITS | Continuity of Care Document ---
Author Organization [facility] Address [address] [place] [address] [place] [address] Phone Care Team Providers Care Tape Stringer Name Role Phone Mike Cary DO Unavailable Unavailable Advance Directives Directive Yes / No Effective Date File Name No Information Encounters Encounter Description Practice Location Reason(s) For Visit Diagnoses Date Provider Providers Copied on Encounter [facility], [address], [place], [place], [id number], [place] tel:[phone] [facility] [place] No Information Raeann Perry. [address] [place], [address], [place]. tel:[phone] Family History Family Member Type Diagnosis Age At Onset No Information Payers Payer name Insurance type Covered green party ID Authoriza tion(s) No Information Social History [...]
--- OUTSIDE RECORDS SUMMARY | 2024-05-27 08:50 | XMS_ITS | Patient Health Record ---
Author Organization [facility] [employer] [employer] eulalia Address [address] [facility] [[email or web address]] [address] [place], [place] [id number] Care Team Providers Care Rouge Miller Name Role Phone CHRISTOPHER CELIS MD Primary Care Provider Nataliia Orourke Unavailable [phone] ALLERGIES No Known Allergies REASON FOR REFERRAL No Information MEDICATIONS Medication SIG (Take, Route, Frequency, Duration) Notes Start Date End Date Status Folgard RX Vitamin B Complex with Folic Acid 1 tab(s) orally TWICE A DAY 02/14/2022 Active SOCIAL HISTORY Sex Assigned At : Social History Observation Description Sex Assigned At Unknown PROBLEMS Problem Type ICD Code Onset Dates Problem Status W/U Status Risk SNOMED Code Notes Problem Numbness of fingers of both hands (R20.0) Active confirmed 798611735 Problem Abnormal pigmentation (L81.9) Active confirmed 234733859 Problem 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) Active confirmed [id number] Problem Positive JOHANNY (antinuclear antibody) (R76.8) Active confirmed [id number] PLAN OF TREATMENT Pending Test Test Name Order Date Protein C Activity 02/14/2022 Future Test Test Name Order Date Lupus Anticoagulant Comprehens 2 Anticardiolip Ab, IgA/G/M, Qn 04/29/2022 Beta-2 Glycoprotein I Ab,G,A,M 2 lab slip given 04/29/2022 Insurance Providers Payer Name Payer Address Payer Phone Subscriber Number Group Number Insured Name Patient Relationship to Insured Coverage Start Date Coverage End Date [facility] [address] [address] JELENA Manzanares [phone] [id number] Johanna Baker Self - patient is the insured 9 MEDICAL (GENERAL) HISTORY Medical History History ICD Code migraine headache blurred vision vision - flashes vision - halos Double vision Ringing in ears anxiety high blood pressure rapid heartbeat frequent urination painful intercourse poor circulation Surgical History Surgery Date(Month/Year) Carpal Tunnel surgery 2006 cataract removal 2019
--- OUTSIDE RECORDS SUMMARY | 2024-05-27 08:50 | XMS_ITS | Clinical Summary ---
Author Organization [facility] [employer] [facility] Address [address] [place] [address] Care Team Providers Care Ice Cream Vault Worker Name Role Phone Riana Scott MD Primary Care Provider [phone] Drew Gibson OD Unavailable [phone] Verena Rand AIRCRAFT MAINTENANCE ENGINEER Unavailable Allergies No known active allergies Medications oxyBUTYnin XL (DITROPAN-XL) 10 mg 24 hr tablet Take 1 tablet (10 mg total) by mouth daily 12/08/2023 Active tirzepatide (MOUNJARO) 12.5 mg/0.5 mL pen injector Inject 12.5 mg under the skin every 7 days Active Active Problems Problem Noted Date Diagnosed Date Visual disturbances 03/26/2024 Assessment & Plan (03/26/2024 12:04 PM ATOMIZER ASSEMBLER): Assessment: - Follow-up from 01/07/24 for vision [...] 03/26/2024 Assessment & Plan (03/26/2024 11:58 AM ATOMIZER ASSEMBLER): Assessment: - Previously started on Topiramate (currently [...] 03/26/2024 Assessment & Plan (03/26/2024 11:58 AM ATOMIZER ASSEMBLER): Assessment: - Likely a component of migraine's and medication overuse - Currently using ibuprofen daily - MRI brain w wo at OSH unremarkable Plan: - Decrease ibuprofen use as medication overuse may be contributing - Evaluation for obstructive sleep apnea; to be arranged by patient's PCP Encounters Date Type Department Care Team Description 05/03/2024 1:37 PM ATOMIZER ASSEMBLER - 05/03/2024 11:59 PM ATOMIZER ASSEMBLER Hospital Encounter [facility] [address] [place] [phone] Right shoulder pain, unspecified chronicity Discharge Disposition: Discharge to home or self care 05/03/2024 1:36 PM ATOMIZER ASSEMBLER - 05/03/2024 11:59 PM ATOMIZER ASSEMBLER Hospital Encounter [facility] [address] [place] [address] Rad, Amh Fluoro Right shoulder pain, unspecified chronicity Discharge Disposition: Discharge to home or self care 04/13/2024 Telephone [facility] [address] [place] [address] Outpatient Health [address] [place] [phone] Callie Kent MD 04/05/2024 Telephone [facility] [address] [place] [address] [phone] Callie Kent MD 03/26/2024 11:00 AM ATOMIZER ASSEMBLER Lab [facility] [address] [place] [address] Visual disturbances 03/26/2024 8:45 AM ATOMIZER ASSEMBLER Office Visit [facility] [address] [place] [phone] Callie Kent MD Visual disturbances (Primary Dx); Anomalous optic nerve (HCC); Frequent headaches; Unspecified disorder of visual pathways; Encounter for observation for other suspected diseases and conditions ruled out 03/26/2024 8:20 AM ATOMIZER ASSEMBLER Imaging Exam [facility] [address] [place] [phone] Optic disc edema (Primary Dx); Frequent headaches; Unspecified disorder of visual pathways; Encounter for observation for other suspected diseases and conditions ruled out 03/18/2024 Telephone [facility] [address] [place] [address], [address] [place] [phone] Callie Kent MD from Last 3 Months Social History Tobacco Use Types Packs/Day Years Used Date Smoking Tobacco: Never Assessed Comments Unknown Sex and Gender Information Value Date Recorded Sex Assigned at Not on file Legal Sex Female 3:02 AM ATOMIZER ASSEMBLER Gender Identity Not on file Sexual Orientation Not on file Obstetrics History Plan of Treatment Health Maintenance Due Date Last Done Comments Breast Cancer Screening-Mammogram 1978 Cervical Cancer Screening 1978 Colon Cancer Screening-Colonoscopy 1978 Depression Screening 1978 Hepatitis C Screening 1978 DTaP/Tdap/Td Vaccine (1 - Tdap) 1989 Hepatitis B Screening 1996 Regular Well Visit/Exam 18-64 1996 Influenza Vaccine (#1) 2024 HPV Vaccines Aged Out No longer eligi ble based on patient's age to complete this topic Pneumococcal vaccine <65 Aged Out No longer eligible based on patient's age to complete this topic Procedures Procedure Name Priority Date/Time Associated Diagnosis Comments MRI SHOULDER ARTHROGRAM RIGHT W CONTRAST Schedule Routine, Read Routine (OP Routine) 05/03/2024 3:11 PM ATOMIZER ASSEMBLER Right shoulder pain, unspecified chronicity INJECTION SHOULDER RIGHT ARTHRO ONLY Schedule Routine, Read Routine (OP Routine) 05/03/2024 2:35 PM ATOMIZER ASSEMBLER Right shoulder pain, unspecified chronicity COPPER, SERUM Routine 03/26/2024 11:03 AM ATOMIZER ASSEMBLER Visual disturbances FOLATE Routine 03/26/2024 11:03 AM ATOMIZER ASSEMBLER Visual disturbances METHYLMALONIC ACID, SERUM Routine 03/26/2024 11:03 AM ATOMIZER ASSEMBLER Visual disturbances VITAMIN B1 Routine 03/26/2024 11:03 AM ATOMIZER ASSEMBLER Visual disturbances VITAMIN B12 Routine 03/26/2024 11:03 AM ATOMIZER ASSEMBLER Visual disturbances VITAMIN A Routine 03/26/2024 11:03 AM ATOMIZER ASSEMBLER Visual disturbances CBC WITHOUT DIFFERENTIAL Routine 03/26/2024 11:03 AM ATOMIZER ASSEMBLER Visual disturbances IRON PROFILE W/ IBC Routine 03/26/2024 1 1:03 AM ATOMIZER ASSEMBLER Visual disturbances TOXOPLASMA ANTIBODIES IGG AND IGM Routine 03/26/2024 11:03 AM ATOMIZER ASSEMBLER Visual disturbances BARTONELLA ANTIBODY PANEL Routine 03/26/2024 11:03 AM ATOMIZER ASSEMBLER Visual disturbances OCT, RETINA - OU - BOTH EYES Routine 03/26/2024 8:47 AM ATOMIZER ASSEMBLER Frequent headaches Unspecified disorder of visual pathways Encounter for observation for other suspected diseases and conditions ruled out OCT, OPTIC NERVE - OU - BOTH EYES Routine 03/26/2024 8:47 AM ATOMIZER ASSEMBLER Frequent headaches Unspecified disorder of visual pathways Encounter for observation for other suspected diseases and conditions ruled out from Last 3 Months Results * MRI Shoulder Arthrogram Right W Contrast (05/03/2024 3:11 PM ATOMIZER ASSEMBLER) Anatomical Region Laterality Modality Upper Extremities Right Magnetic Reson ance 05/04/2024 5:29 AM ATOMIZER ASSEMBLER Narrative 05/04/2024 5:37 AM ATOMIZER ASSEMBLER EXAM DESCRIPTION: MRI SHOULDER ARTHROGRAM RIGHT W [...] AM T: ??05/04/2024 5:37 AM Report ID: [id number] Reading Location: ??[id number] Procedure Note Rodrigo Bae MD - 05/04/2024 [...] Posterior right glenoid labral tear extending from uyviomxxyvzmb21:30-7:30. Mild right acromioclavicular joint osteoarthritis with a small distal clavicular erosion and marrow edema. This can be associated withsuperimposed mild distal clavicular osteolysis. Mild right glenohumeral joint chondrosis. THIS IS AN ELECTRONICALLY VERIFIED FINAL REPORT 05/04/2024 5:37 AM - Electronically signed by Rodrigo Bae M.D. MF: ISA Report ID: [id number] Reading Location: [id number] Scott Ontiveros MD IM MRI PROCEDURES Final Re sult * Injection Shoulder Right Arthro Only (05/03/2024 2:35 PM ATOMIZER ASSEMBLER) Anatomical Region Laterality Modality Shoulder Right Radio Fluoroscop y 05/04/2024 5:37 AM ATOMIZER ASSEMBLER Narrative 05/04/2024 5:37 AM ATOMIZER ASSEMBLER EXAMINATION: ?? Right ??joint injection for arthrography Fluoroscopic guidance for needle placement HISTORY: Right shoulder pain , pre ??MR ??arthrogram TECHNIQUE: The risks, benefits and alternatives were discussed with the patient. ??Informed consent was obtained. ??Prior to beginning the procedure, [place] Protocol was performed to confirm the patient's [...] AM T: ??05/04/2024 5:37 AM Report ID: [id number] Reading Location: ??[id number] Procedure Note Rodrigo Bae MD - 05/04/2024 EXAMINATION: Right joint injection for arthrography Fluoroscopic guidance for needle placement HISTORY: Right shoulder pain , pre MR arthrogram TECHNIQUE: The risks, benefits and alternatives were discussed with the patient. Informed consent was obtained. Prior to beginning theprocedure, [place] Protocol was performed to confirm the patient's [...] Rodrigo Bae M.D. MF: ISA Report ID: [id number] Reading Location: [id number] Scott Ontiveros MD IMG XR PROCEDURES Final Res ult * Toxoplasma antibodies, IgG and IgM Blood (03/26/2024 11:03 AM ATOMIZER ASSEMBLER) Toxoplasma IgG Negative Negative Comment: Interpretive Data Negative - ??No detectable antibody. Equivocal - Presence of detectable antibody cannot be determined. Positive - ??Detectable level of antibody present. Current interpretive data was last revised on 2017. Toxoplasma IgM Negative Negative [facility] Blood 03/26/2024 11:0 3 AM ATOMIZER ASSEMBLER 03/26/2024 12:41 PM ATOMIZER ASSEMBLER Callie Kent MD LAB MICROBIOLOGY - GENERAL ORDERABLES Final Result [facility] [place] [address] * Iron profile w/ IBC (03/26/2024 11:03 AM ATOMIZER ASSEMBLER) Iron 59 35 - 145 mcg/dL TIBC 272 250 - 400 mcg/dL [facility] Transferrin saturation 22 20 - 50 % [facility] Blood 03/26/2024 11:0 3 AM ATOMIZER ASSEMBLER 03/26/2024 12:41 PM ATOMIZER ASSEMBLER us Callie Kent MD LAB BLOOD ORDERABLES Final Result Performing Organization Address [facility] [place] [address] * Methylmalonic acid, serum (03/26/2024 11:03 AM ATOMIZER ASSEMBLER) Pathologist [facility] MMA 0.12 <=0.40 nmol/mL [facility] Comment: ADDITIONAL INFORMATION This test was developed and its performance characteristics determined by [facility] in a manner consistent with CLIA requirements. This test has not been cleared or approved by the U.S. Food and Drug Administration. Test Performed by: [facility] - [address] [address] Administrative Clerk: Izabela Wellington Ph.D.; CLIA# [id number] Blood 03/26/2024 11:0 3 AM ATOMIZER ASSEMBLER 03/26/2024 2:25 PM ATOMIZER ASSEMBLER us aCllie Kent MD LAB BLOOD ORDERABLES Final Result Performing Organization Address City/[facility] [[email or web address]] Co de Phone Number [facility] [place] [address] [facility] * Copper, serum (03/26/2024 11:03 AM ATOMIZER ASSEMBLER) Copper 100 77 - 206 mcg/dL [facility] Comment: ADDITIONAL INFORMATION This test was developed and its performance characteristics determined by [facility] in a manner consistent with CLIA requirements. This test has not been cleared or approved by the U.S. Food and Drug Administration. Test Performed by: [facility] [place] [address] Administrative Clerk: Izabela Wellington Ph.D.; CLIA# [id number] Blood 03/26/2024 11:0 3 AM ATOMIZER ASSEMBLER 03/26/2024 12:53 PM ATOMIZER ASSEMBLER Narrative [facility] - 03/27/2024 2:32 PM ATOMIZER ASSEMBLER [place] blue top tube. No additives. Callie Kent MD LAB BLOOD ORDERABLES Final Result [facility] Department [place] [address] [facility] * Bartonella antibody panel Blood (03/26/2024 11:03 AM ATOMIZER ASSEMBLER) Pathologist [facility] B Henselae, IgG <1:128 <1:128 titer [facility] B Henselae, IgM <1:20 <1:20 titer [facility] B. Elizabeth, IgG <1:128 <1:128 titer [facility] B. Elizabeth, IgM <1:20 <1:20 titer [facility] Comment: ADDITIONAL INFORMATION This test was developed and its performance characteristics determined by [facility] in a manner consistent with CLIA requirements. This test has not been cleared or approved by the U.S. Food and Drug Administration. Test Performed by: [facility] - [address] [address] Administrative Clerk: Izabela Wellingotn Ph.D.; CLIA# [id number] Blood 03/26/2024 11:0 3 AM ATOMIZER ASSEMBLER 03/26/2024 2:25 PM ATOMIZER ASSEMBLER us Callie Kent MD LAB MICROBIOLOGY - GENERAL ORDERABLES Final Result Performing Organization Address [facility] [place] [address] [facility] * Vitamin A (03/26/2024 11:03 AM ATOMIZER ASSEMBLER) Pathologist [facility] Vitamin A 54.2 32.5 - 78.0 mcg/dL [facility] Comment: ADDITIONAL INFORMATION This test was developed and its performance characteristics determined by [facility] in a manner consistent with CLIA requirements. This test has not been cleared or approved by the U.S. Food and Drug Administration. Test Performed by: [facility] [place] [address] Administrative Clerk: Izabela Wellington Ph.D.; CLIA# [id number] Blood 03/26/2024 11:0 3 AM ATOMIZER ASSEMBLER 03/26/2024 12:53 PM ATOMIZER ASSEMBLER us Callie Kent MD LAB BLOOD ORDERABLES Final Result Performing Organization Address [facility] [place] [address] [facility] * CBC without differential (03/26/2024 11:03 AM ATOMIZER ASSEMBLER) [facility] WBC 6.6 3.8 - 9.9 K/cumm Hgb 14.2 11.9 - 15.5 g/dL [facility] Hct 41.4 35.6 - 45.5 % [facility] Plt 273 150 - 400 K/cumm [facility] MPV 10.0 9.1 - 12.3 fL [facility] RBC 4.51 3.90 - 5.20 M/cumm [facility] MCV 91.8 81.3 - 96.4 fL [facility] MCH 31.5 27.1 - 33.3 pg [facility] MCHC 34.3 32.3 - 35.7 g/dL [facility] RDW CV 11.8 11.1 - 14.9 % [facility] RDW SD 39.7 35.7 - 48.1 fL [facility] NRBC abs 0.00 0.00 - 0.01 K/cumm [facility] Blood 03/26/2024 11:0 3 AM ATOMIZER ASSEMBLER 03/26/2024 12:41 PM ATOMIZER ASSEMBLER us Callie Kent MD LAB BLOOD ORDERABLES Final Result Performing Organization Address [facility] de Phone Number [facility] [place] [address] * Vitamin B1 (03/26/2024 11:03 AM ATOMIZER ASSEMBLER) [facility] Thiamine (Vit B1) 171 70 - 180 nmol/L [facility] Comment: ADDITIONAL INFORMATION This test was developed and its performance characteristics determined by [facility] in a manner consistent with CLIA requirements. This test has not been cleared or approved by the U.S. Food and Drug Administration. Test Performed by: [facility] - [address] [address] Administrative Clerk: Izabela Wellington Ph.D.; CLIA# [id number] Blood 03/26/2024 11:0 3 AM ATOMIZER ASSEMBLER 03/26/2024 12:53 PM ATOMIZER ASSEMBLER us Callie Kent MD LAB BLOOD ORDERABLES Final Result Performing Organization Address [facility] de Phone Number [facility] [place] [address] [facility] * Folate (03/26/2024 11:03 AM ATOMIZER ASSEMBLER) Pathologist [facility] Folic acid 19.7 >=5.0 ng/mL Blood 03/26/2024 11:0 3 AM ATOMIZER ASSEMBLER 03/26/2024 12:41 PM ATOMIZER ASSEMBLER us Callie Kent MD LAB BLOOD ORDERABLES Final Result Performing Organization Address [facility] [[email or web address]] [place] [address] * Vitamin B12 (03/26/2024 11:03 AM ATOMIZER ASSEMBLER) [facility] Vitamin B12 733 230 - 1,250 pg/mL Blood 03/26/2024 11:0 3 AM ATOMIZER ASSEMBLER 03/26/2024 12:41 PM ATOMIZER ASSEMBLER us Callie Kent MD LAB BLOOD ORDERABLES Final Result Performing Organization Address [facility] [place] [address] * OCT, Retina - OU - Both Eyes (03/26/2024 8:47 AM ATOMIZER ASSEMBLER) Anatomical Region Laterality Modality Head Other Narrative 03/26/2024 10:01 AM ATOMIZER ASSEMBLER Right Eye Findings include normal observations. Left Eye Findings include normal observations. Notes Normal mean ganglion cell complex thickness OU (on [employer] OCT) us Callie Kent MD OPHTH TOMOGRAPHY Final Resu lt * OCT, Optic Nerve - OU - Both Eyes (03/26/2024 8:47 AM ATOMIZER ASSEMBLER) Pathologist [facility] RNFL OS 101 micrometers CONTINUUM RNFL OD 116 micrometers CONTINUUM Anatomical Region Laterality Modality Head Other Narrative 03/26/2024 10:01 AM ATOMIZER ASSEMBLER Right Eye Reliability was good. Average RNFL thickness 116 micrometers. Left Eye Reliability was good. Average RNFL thickness 101 micrometers. Notes Stable OD, interval decrease OS in mean RNFL thickness (Performed on [employer] OCT) Callie Kent MD OPHTH TOMOGRAPHY Final Resu lt from Last 3 Months Insurance [employer] Care Teams Ice Cream Vault Worker Relationship Specialty Start Date End Date Riana Scott MD PCP - General Family Medicine 10/15/23 Drew Gibson OD [address] [place] [address] Referring Physician Optometry 01/07/24 Verena Rand NP [address] [place] [id number] Nurse Practitioner Nurse Practitioner 02/24/24
== END 2024-05-22 10:24 | disposition home or self-care (01) ==
PROVIDERS: PCP Family Medicine; Visit Provider Family Medicine
DX: R00.2 Palpitations (principal); R35.0 Frequency of micturition; Z13.1 Encounter for screening for diabetes mellitus
CPT/HCPCS: 36415; 80053; 81001; 83036; 84443; 85025; 93005

== ENCOUNTER → 2024-09-06 16:37 | Outpatient (CLI) | payer OTHER, SELFPAY ==
--- NOTE | ~2024-09-06 | XR_ITS ---
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 COMPARISON: None available TECHNIQUE: PA and lateral views of the chest. FINDINGS The cardiomediastinal silhouette is unremarkable. The lungs are clear. Visualized osseous structures and soft tissues are unremarkable. IMPRESSION: No focal infiltrate or effusion. Reviewed, dictated and finalized at location A.
--- OUTSIDE RECORDS SUMMARY | 2024-09-06 16:57 | XMS_ITS | Clinical Summary ---
Author Organization [facility] Address [address] [address] Phone Care Team Providers Care Quality Control Clerk Name Role Phone Riana Scott MD Primary Care Provider [phone] Allergies No known active allergies Medications medroxyPROGEST [...] Comments Blood Pressure 169/111 03/27/2022 11:30 AM SKI GUIDE Pulse 86 03/27/2022 11:30 AM SKI GUIDE Temperature - - Respiratory Rate - - Oxygen Saturation - - Inhaled Oxygen Concentration - - Weight 97.5 kg (215 lb) 03/27/2022 11:30 AM SKI GUIDE Height 160 cm (5' 3 ) 03/27/2022 11:30 AM SKI GUIDE Body Mass Index 38.09 03/27/2022 11:30 AM SKI GUIDE Plan of Treatment Health Maintenance Due Date Last Done Comments DTAP/TDAP/TD VACCINES (1 - Tdap) 1997 HEPATITIS B VACCINES (1 of 3 - 19+ 3-dose series) 1997 HPV/Cotest (21-29) 1999 CERVICAL CANCER SCREENING 2008 HPV/Cotest (30-65) 2008 PAP SMEAR 2008 BREAST CANCER SCREENING 2018 COLORECTAL SCREENING 2023 Colorectal Cancer Screening 2023 FIT-DNA Q 3 years 2023 FIT/FOBT Q 1 year 2023 Flex Sig/CT Colonography Q 5 years 2023 INFLUENZA VACCINE (#1) 2023 HPV VACCINES Aged Out No longer eligi ble based on patient's age to complete this topic Insurance [facility] [id number] POS II Care Teams Quality Control Clerk Relationship Specialty Start Date End Date Riana Scott MD [address] [place] [address] PCP - General Family Practice 03/27/22
--- OUTSIDE RECORDS SUMMARY | 2024-09-06 16:57 | XMS_ITS | Continuity of Care Document ---
Author Organization [facility] Address [address] [place] [address] [place] [address] Phone Care Team Providers Care Quality Head Name Role Phone Mike Cary DO Unavailable Unavailable Advance Directives Directive Yes / No Effective Date File Name No Information Encounters Encounter Description Practice Location Reason(s) For Visit Diagnoses Date Provider Providers Copied on Encounter [facility], [address], [place], [place], [id number], [place] tel:[phone] [facility] No Information Raeann Perry. [address] [place], [address], [place]. tel:[phone] Family History Family Member Type Diagnosis Age At Onset No Information Payers Payer name Insurance type Covered alliance party ID Authoriza tion(s) No Information Social [...]
--- OUTSIDE RECORDS SUMMARY | 2024-09-06 16:57 | XMS_ITS | Patient Health Record ---
Author Organization [facility] [place] Address 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) Active confirmed 799834961 Problem Positive JOHANNY (antinuclear antibody) (R76.8) Active confirmed 704318193 PLAN OF TREATMENT Pending Test Test Name Order Date Protein C Activity 02/14/2022 Future Test Test Name Order Date Lupus Anticoagulant Comprehens 2 Anticardiolip Ab, IgA/G/M, Qn 04/29/2022 Beta-2 Glycoprotein I Ab,G,A,M 2 lab slip given 04/29/2022 Insurance Providers Payer Name Payer Address Payer Phone Subscriber Number Group Number Insured Name Patient Relationship to Insured Coverage Start Date Coverage End Date [facility] [address] JELENA Manzanares [phone] [id number] Johanna Baker Self - patient is the insured 9 MEDICAL (GENERAL) HISTORY Medical History History ICD Code migraine headache blurred vision vision - flashes vision - halos Double vision Ringing in ears anxiety high blood pressure rapid heartbeat frequent urination painful intercourse poor circulation Surgical History Surgery Date(Month/Year) Carpal Tunnel surgery 2006 cataract removal 2019
--- OUTSIDE RECORDS SUMMARY | 2024-09-06 16:58 | XMS_ITS | Referral Summary ---
Author Organization [facility] Address [address] [place] [id number] Care Team Providers Care Parking Analyst Name Role Phone Riana Scott MD Primary Care Provider [phone] Drew Gibson OD Unavailable [phone] Verena Rand NP Unavailable Arnold Julio MD Unavailable [phone] Encounters Date Type Department Care Team Description 09/01/2024 Telephone [facility] Ophthalmology [address] [place] [phone] Callie Kent MD 09/01/2024 Telephone [facility] Ophthalmology [address] [place] [address] Callie Kent MD 08/30/2024 7:50 AM CDT Imaging Exam [facility] Ophthalmology [address] [place] [phone] Visual disturbances 08/30/2024 8:00 AM CDT Imaging Exam [facility] Ophthalmology [address] [place] [phone] Visual disturbances 08/30/2024 8:45 AM CDT Office Visit [facility] Ophthalmology [address] [place] [phone] Callie Kent MD PVD (posterior vitreous detachment), right eye (Primary Dx); Sees flashes of light; Anomalous optic nerve (HCC); Visual disturbances 07/26/2024 Telephone [facility] Ophthalmology [address] [place] [address] Callie Kent MD new symptoms after Sx 07/23/2024 Orders Only [facility] Ophthalmology [address] [facility] [address]nd [address], [address] [place] [phone] Callie Kent MD 07/13/2024 Telephone [facility] Ophthalmology [address] [facility] [address]th [address], [address] [facility] [place] [address] Callie Kent MD from Last 3 Months Allergies No known active allergies Medications lisinopriL (PRINIVIL,ZESTR IL) 5 mg tablet Take 1 tablet (5 mg total) by mouth daily 5 Active progesterone (PROMETRIUM) 200 mg capsule Take 1 capsule (200 mg total) by mouth daily 5 Active oxyBUTYnin XL (DITROPAN-XL) 10 mg 24 hr tablet Take 1 tablet (10 mg total) by mouth daily 4 08/31/19 25 Discontinu ed(Patient Reported) tirzepatide (MOUNJARO) 12.5 mg/0.5 mL pen injector Inject 12.5 mg under the skin every 7 days 08/31/19 25 Discontinu ed(Patient Reported) Active Problems Problem Noted Date Diagnosed Date Visual disturbances 03/26/2024 Assessment & Plan (03/26/2024 12:04 PM DENTAL INTERN): Assessment: - Follow-up from 01/07/24 for vision [...] 03/26/2024 Assessment & Plan (03/26/2024 11:58 AM DENTAL INTERN): Assessment: - Previously started on Topiramate (currently [...] 03/26/2024 Assessment & Plan (03/26/2024 11:58 AM DENTAL INTERN): Assessment: - Likely a component of migraine's and medication overuse - Currently using ibuprofen daily - MRI brain w wo at OSH unremarkable Plan: - Decrease ibuprofen use as medication overuse may be contributing - Evaluation for obstructive sleep apnea; to be arranged by patient's PCP Social History Tobacco Use Types Packs/Day Years Used Date Smoking Tobacco: Former Cigarettes 2 - 2014 Smokeless Tobacco: Never Tobacco Cessation:Counseling Given: Not Answered AUDIT-C Answer Date Recorded Q1: How often do you have a drink containing alc ohol? 2-4 times a month 08/30/2024 Average Number of Drinks Not on file 025 Frequency of Binge Drinking Not on file 08/04 Comments Unknown Sex and Gender Information Value Date Recorded Sex Assigned at Not on file Legal Sex Female 3:02 AM DENTAL INTERN Gender Identity Female 05/27/2024 6:29 PM DENTAL INTERN Sexual Orientation Not on file Plan of Treatment Not on file Procedures Procedure Name Priority Date/Time Associated Diagnosis Comments OCT, RETINA - OU - BOTH EYES Routine 08/30/2024 8:45 AM CDT Anomalous optic nerve (HCC) Visual disturbances MCKEON VISUAL FIELD - OU - BOTH EYES Routine 08/30/2024 8:28 AM CDT Visual disturbances OCT, OPTIC NERVE - OU - BOTH EYES Routine 08/30/2024 8:26 AM CDT Visual disturbances from Last 3 Months Results * OCT, Retina - OU - Both Eyes (08/30/2024 8:45 AM CDT) Anatomical Region Laterality Modality Head Optical Coherenc e Tomography Narrative 08/30/2024 8:45 AM CDT Right Eye Findings include normal observations. Left Eye Findings include normal observations. Notes Normal mean ganglion cell complex thickness OU (on Zeiss Cirrus OCT) us Callie Kent MD OPHTH TOMOGRAPHY Final Resu lt * Mckeon Visual Field - OU - Both Eyes (08/30/2024 8:28 AM CDT) Pattern Deviation OS 1.34 dB CONTINUUM Pattern Deviation OD 1.49 dB CONTINUUM Mean Deviation OS -1.61 dB CONTINUUM Mean Deviation OD -1.34 dB CONTINUUM Anatomical Region Laterality Modality Head Other Narrative 08/30/2024 8:45 AM CDT Right Eye Fixation was good. Cooperation was good. Reliability was good. Mean Deviation was -1.34 dB. Pattern Deviation was 1.49 dB. Left Eye Fixation was good. Cooperation was good. Reliability was good. Mean Deviation was -1.61 dB. Pattern Deviation was 1.34 dB. Notes HVF 24-2 full OU to size 3 stimulus us Callie Kent MD OPH VISUAL FIELD Final Re sult * OCT, Optic Nerve - OU - Both Eyes (08/30/2024 8:26 AM CDT) RNFL OS 104 micrometers CONTINUUM RNFL OD 122 micrometers CONTINUUM Anatomical Region Laterality Modality Head Other Narrative 08/30/2024 8:45 AM CDT Right Eye Reliability was good. Average RNFL thickness 122 micrometers. Left Eye Reliability was good. Average RNFL thickness 104 micrometers. Notes Stable mean RNFL thickness (Performed on Zeiss Cirrus OCT) Callie Kent MD OPH TOMOGRAPHY Final Resu lt from Last 3 Months Insurance [id number] [place] [address] [employer] [address] [place] [address] Care Teams Parking Analyst Relationship Specialty Start Date End Date Riana Scott MD PCP - General Family Medicine 10/15/23 Drew Gibson OD [address] [place] [address] Referring Physician Optometry 01/07/24 Verena Rand NP [address] [place] [address] Nurse Practitioner Nurse Practitioner 02/24/24 Arnold Julio MD [address] [address] Neurologist Neurology 08/30/24
--- OUTSIDE RECORDS SUMMARY | 2024-09-06 16:58 | XMS_ITS | Clinical Summary ---
Author Organization [facility] Address [address] [place] [address] Care Team Providers Care Associate School Psychologist Name Role Phone Riana Scott MD Primary Care Provider [phone] Drew Gibson OD Unavailable [phone] Verena Rand CERTIFIED NURSING ATTENDANT Unavailable Arnold Julio MD Unavailable [phone] Allergies No known active allergies Medications lisinopriL [...] 03/26/2024 Assessment & Plan (03/26/2024 12:04 PM TRUCK DESPATCHER): Assessment: - Follow-up from 01/07/24 for vision [...] 03/26/2024 Assessment & Plan (03/26/2024 11:58 AM TRUCK DESPATCHER): Assessment: - Previously started on Topiramate (currently [...] 03/26/2024 Assessment & Plan (03/26/2024 11:58 AM TRUCK DESPATCHER): Assessment: - Likely a component of migraine's and medication overuse - Currently using ibuprofen daily - MRI brain w wo at OSH unremarkable Plan: - Decrease ibuprofen use as medication overuse may be contributing - Evaluation for obstructive sleep apnea; to be arranged by patient's PCP Encounters Date Type Department Care Team Description 09/01/2024 Telephone [facility] Ophthalmology [address] [place] [address] [address] [place] [phone] Callie Kent MD 09/01/2024 Telephone [facility] Ophthalmology [address] [place] [phone] Callie Kent MD 08/30/2024 8:45 AM CDT Office Visit [facility] Ophthalmology [address] [place] [phone] Callie Kent MD PVD (posterior vitreous detachment), right eye (Primary Dx); Sees flashes of light; Anomalous optic nerve (HCC); Visual disturbances 08/30/2024 8:00 AM CDT Imaging Exam [facility] Ophthalmology [address] [facility] [address] [place] [phone] Visual disturbances 08/30/2024 7:50 AM CDT Imaging Exam [facility] Ophthalmology [address] [facility] [address] [place] [phone] Visual disturbances 07/26/2024 Telephone [facility] Ophthalmology [address] [place] [address] Callie Kent MD new symptoms after Sx 07/23/2024 Orders Only [facility] Ophthalmology [address] [facility] [address], [address] [place] [phone] Callie Kent MD 07/13/2024 Telephone [facility] Ophthalmology [address] [facility] [address] [facility], [address] [facility] [place] [address] Callie Kent MD from Last 3 Months Social History Tobacco Use Types Packs/Day Years Used Date Smoking Tobacco: Former Cigarettes - 2014 Smokeless Tobacco: Never Tobacco Cessation:Counseling [...] on file Legal Sex Female 3:02 AM TRUCK DESPATCHER Gender Identity Female 05/27/2024 6:29 PM TRUCK DESPATCHER Sexual Orientation Not on file Obstetrics History Plan of Treatment Health Maintenance Due Date Last Done Comments Breast Cancer Screening-Mammogram 1978 Cervical Cancer Screening 1978 Colon Cancer Screening-Colonoscopy 1978 Depression Screening 1978 Hepatitis C Screening 1978 DTaP/Tdap/Td Vaccine (1 - Tdap) 1989 Hepatitis B Screening 1996 Regular Well Visit/Exam 18-64 1996 Influenza Vaccine (Season Ended) 2025 HPV Vaccines Aged Out No longer eligi [...] size 3 stimulus us Callie Kent MD OPHTH VISUAL FIELD Final Re sult * OCT, [...] Resu lt from Last [address] [place] [address] [place] [address] Member Subscriber Plan / Payer ( fective 2018-Present) Name:Johanna Baker Relation to Subscriber:Self Name:Johanna Baker Payer ID:[id number] (NAIC) Group ID:[id number] Type:[employer] Address: [facility] [id number] [place] [phone] [place] [address] [employer] Care Teams Associate School Psychologist Relationship Specialty Start Date End Date Riana Scott MD PCP - General Family Medicine 10/15/23 Drew Gibson OD [address] [place] [address] Referring Physician Optometry 01/07/24 Verena Rand NP [address] [address] Nurse Practitioner Nurse Practitioner 02/24/24 Arnold Julio MD [address] [address] Neurologist Neurology 08/30/24
== END ==
PROVIDERS: PCP Family Medicine
DX: H47.10 Unspecified papilledema (principal)
CPT/HCPCS: 71046

== ENCOUNTER 2025-02-17 15:16 | Outpatient (CLI) | payer OTHER, SELFPAY ==
--- OUTSIDE RECORDS SUMMARY | 2002-11-25 11:00 | XMS_ITS | Continuity of Care Document ---
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 [place] No Information Raeann Perry. [address] [place], [address], [place]. tel:[phone] Family History Family Member Type Diagnosis Age At Onset No Information Payers Payer name Insurance type Covered libertarian ID Authoriza tion(s) No Information Social History Type Description Quantity Date Captured Comments Sex Female Smoking Status No Information Chief Complaint And Reason For Visit No Information Reason For Referral Reason For Referral No Information History Of Present Illness Encounter Date Complaint History Of Prese nt Illness No Information Functional Status Date Functional Assessmen t No Information Instructions Date Instruction Additional Infor mation No Information Assessments Type Assessment Date No Information Patient Care Teams Name Effective Dates (start - stop) Status Members No Information
--- NOTE | ~2025-02-17 | XR_ITS ---
EXAMINATION: XR abdomen/kub 1V, 02/17/2025 15:23 CDT HISTORY: suspicion of kidney stone COMPARISON: No comparisons available. Technique: 3 view. Findings: Bowel gas pattern unremarkable. No obstruction. Moderate fecal content limits evaluation however there are probable bilateral renal calculi the largest left kidney midpole 5 x 6 mm. No acute osseous abnormality. IUD overlies the pelvis. Impression: 1. Probable renal calculi. Correlate with CT. Reviewed, dictated and finalized at location P. Impression: 1. Probable renal calculi. Correlate with CT.
--- OUTSIDE RECORDS SUMMARY | 2025-02-17 17:26 | XMS_ITS | Clinical Summary ---
Author Organization [facility] Address [address] [place] [address] Phone Care Team Providers Care Chief Scientific Officer Name Role Phone Riana Scott MD Primary Care Provider [phone] Allergies No known active allergies Medications medroxyPROGEST [...] Comments Blood Pressure 169/111 03/27/2022 11:30 AM ENTERPRISE SERVICES MANAGER Pulse 86 03/27/2022 11:30 AM ENTERPRISE SERVICES MANAGER Temperature - - Respiratory Rate - - Oxygen Saturation - - Inhaled Oxygen Concentration - - Weight 97.5 kg (215 lb) 03/27/2022 11:30 AM ENTERPRISE SERVICES MANAGER Height 160 cm (5' 3) 03/27/2022 11:30 AM ENTERPRISE SERVICES MANAGER Body Mass Index 38.09 03/27/2022 11:30 AM ENTERPRISE SERVICES MANAGER Plan of Treatment Health Maintenance Due Date [...] Q 5 years 2023 INFLUENZA VACCINE (#1) 2024 HPV VACCINES Aged Out No longer eligi ble based on patient's age to complete this topic Insurance [facility] [id number] POS II Care Teams Chief Scientific Officer Relationship Specialty Start Date End Date Riana Scott MD [address] [place] [address] PCP - General Family Practice 03/27/22
--- OUTSIDE RECORDS SUMMARY | 2025-02-17 17:26 | XMS_ITS | Clinical Summary ---
Author Organization [facility] Address [address] [place] [address] Care Team Providers Care Tobacco Curer Name Role Phone Riana Scott MD Primary Care Provider [phone] Drew Gibson OD Unavailable Verena Rand FREQUENCY CHECKER Unavailable Arnold Julio MD Unavailable [phone] HonGiorgi estrada MD PhD Unavailable Isacc Mccauley MD Unavailable [phone] Allergies No known active allergies Medications lisinopriL (PRINIVIL,ZESTR IL) 5 mg tablet Take 1 tablet (5 mg total) by mouth daily 08/24/2024 Active progesterone (PROMETRIUM) 200 mg capsule Take 1 capsule (200 mg total) by mouth daily 07/01/2024 Active Active Problems Problem Noted Date Diagnosed Date Visual disturbances 03/26/2024 Assessment & Plan (03/26/2024 12:04 PM CORPORATE LOGISTICS MANAGER): Assessment: - Follow-up from 01/07/24 for vision [...] 03/26/2024 Assessment & Plan (03/26/2024 11:58 AM CORPORATE LOGISTICS MANAGER): Assessment: - Previously started on Topiramate (currently [...] 03/26/2024 Assessment & Plan (03/26/2024 11:58 AM CORPORATE LOGISTICS MANAGER): Assessment: - Likely a component of migraine's and medication overuse - Currently using ibuprofen daily - MRI brain w wo at OSH unremarkable Plan: - Decrease ibuprofen use as medication overuse may be contributing - Evaluation for obstructive sleep apnea; to be arranged by patient's PCP Encounters Date Type Department Care Team Description 02/03/2025 Results Follow-Up [facility] [address] [address] Callie Kent MD MRI Internal Auditory Canal Brain W WO Contrast 02/02/2025 9:50 AM CDT - 02/02/2025 11:59 PM CDT Hospital Encounter [facility] [address] [place] [address] Tinnitus of both ears Discharge Disposition: Discharge to home or self care 02/02/2025 9:50 AM CDT - 02/02/2025 11:59 PM CDT Hospital Encounter [facility] [address] [place] [address] Tinnitus of both ears; Optic disc edema Discharge Disposition: Discharge to home or self care 01/28/2025 Telephone [facility] [address] [place] [address] Callie Kent MD order for MRV 01/19/2025 8:30 AM CDT Office Visit [facility]mology [address] [place] [address] Callie Kent MD Bilateral posterior uveitis (Primary Dx); Optic disc edema; Tinnitus of both ears 01/19/2025 8:20 AM CDT Imaging Exam [facility]mology [address], [address] [place] [address] Visual disturbances; Unspecified disorder of visual pathways; Encounter for observation for other suspected diseases and conditions ruled out; Optic disc edema 12/07/2024 Orders Only [facility] [address] [place] [address] Callie Kent MD Visual disturbances (Primary Dx); Unspecified disorder of visual pathways; Encounter for observation for other suspected diseases and conditions ruled out; Optic disc edema from Last 3 Months Social History Tobacco [...] on file Legal Sex Female 3:02 AM CORPORATE LOGISTICS MANAGER Gender Identity Female 05/27/2024 6:29 PM CORPORATE LOGISTICS MANAGER Sexual Orientation Not on file Obstetrics History Plan of Treatment Health Maintenance Due Date Last Done Comments Breast Cancer Screening-Mammogram 1978 Cervical Cancer Screening 1978 Colon Cancer Screening-Colonoscopy 1978 Depression Screening 1978 Hepatitis C Screening 1978 Hepatitis B Screening 1996 Regular Well Visit/Exam 18-64 1996 Influenza Vaccine (#1) 2025 DTaP/Tdap/Td Vaccine (2 - Td or Tdap) 01/06/2035 01/06/2025 HPV Vaccines Aged Out No longer eligi ble based on patient's age to complete this topic Pneumococcal vaccine <65 Aged Out No longer eligible based on patient's age to complete this topic Procedures Procedure Name Priority Date/Time Associated Diagnosis Comments MRV HEAD W CONTRAST Schedule Routine, Read Routine (OP Routine) 02/02/2025 11:09 AM CDT Tinnitus of both ears MRI INTERNAL AUDITORY CANAL INCL BRAIN W WO CONTRAST Schedule Routine, Read Routine (OP Routine) 02/02/2025 11:09 AM CDT Tinnitus of both ears OCT, RETINA - OU - BOTH EYES Routine 01/19/2025 12:59 PM CDT Visual disturbances Unspecified disorder of visual pathways Encounter for observation for other suspected diseases and conditions ruled out Optic disc edema OCT, OPTIC NERVE - OU - BOTH EYES Routine 01/19/2025 12:59 PM CDT Visual disturbances Unspecified disorder of visual pathways Encounter for observation for other suspected diseases and conditions ruled out Optic disc edema from Last 3 Months Results * MRV Head W Contrast (02/02/2025 11:09 AM CDT) Anatomical Region Laterality Modality Head and Neck N/A Magnetic Resonan ce 02/02/2025 11:3 4 AM CDT Narrative 02/02/2025 11:39 AM CDT EXAM DESCRIPTION: MRV HEAD W CONTRAST REASON FOR STUDY: worsening tinnitus and history of optic disc edema, please rule out dural venous sinus thrombosis, worsening tinnitus and history of optic disc edema, please rule out dural venous sinus thrombosis Worsening tinnitus in both ears. Pulsating sound in both ears, worsening over the last few months. TECHNIQUE: MR venogram of the head postcontrast was obtained per protocol. 3D MIP images rendered on scanning unit and reviewed at time of interpretation. CONTRAST TYPE/DOSE: 16mL of GADOTERATE MEGLUMINE 0.5 MMOL/ML INTRAVENOUS SOLUTION (SO) injected via intravenous COMPARISON: None available. FINDINGS: The superior sagittal sinus is patent. The right and left transverse sinus proximal and mid margins are patent. There is decreased caliber of the lateral transverse sinuses on both sides. The bilateral sigmoid sinuses are patent. The bilateral internal jugular vein imaged proximal segments are patent. The bilateral internal cerebral veins are patent. The great vein of Javier, straight sinus and confluence of the sinuses are patent. A few hypoenhancing areas within the dural venous sinuses including in the superior sagittal sinus, straight sinus, bilateral transverse and sigmoid sinuses would be most compatible with arachnoid granulations. IMPRESSION: 1. There is no evidence for dural venous sinus thrombosis. 2. Decreased caliber of the right and left transverse sinus lateral margins could be stenosis or developmental variant. THIS IS AN ELECTRONICALLY VERIFIED FINAL REPORT 02/02/2025 11:39 AM - Electronically signed by Jeremy Baron D.O. AP: AP Report ID: [id number] Reading Location: [id number] Procedure Note Jeremy Baron, DO - 02/02/2025 EXAM DESCRIPTION: MRV HEAD W CONTRAST REASON FOR STUDY: worsening tinnitus and history of optic disc edema,please rule out dural venous sinus thrombosis, worsening tinnitus and history of optic disc edema, please rule out dural venous sinus thrombosis Worsening tinnitus in both ears. Pulsating sound in both ears, worseningover the last few months. TECHNIQUE: MR venogram of the head postcontrast was obtained per protocol. 3D MIP images rendered on scanning unit and reviewed at time of interpretation. CONTRAST TYPE/DOSE: 16mL of GADOTERATE MEGLUMINE 0.5 MMOL/ML INTRAVENOUS SOLUTION (SO) injected via intravenous COMPARISON: None available. FINDINGS: The superior sagittal sinus is patent. The right and left transversesinus proximal and mid margins are patent. There is decreased caliber of the lateral transverse sinuses on both sides. The bilateral sigmoid sinusesare patent. The bilateral internal jugular vein imaged proximal segments are patent. The bilateral internal cerebral veins are patent. The great vein ofGalen, straight sinus and confluence of the sinuses are patent. A few hypoenhancing areas within the dural venous sinuses including in the superior sagittal sinus, straight sinus, bilateral transverse and sigmoid sinuses would be most compatible with arachnoid granulations. IMPRESSION: 1. There is no evidence for dural venous sinus thrombosis. 2. Decreased caliber of the right and left transverse sinus lateralmargins could be stenosis or developmental variant. THIS IS AN ELECTRONICALLY VERIFIED FINAL REPORT 02/02/2025 11:39 AM - Electronically signed by Jeremy Baron D.O. AP: HUSAM Report ID: [id number] Reading Location: [place] [address] Callie Kent MD IMG MRI PROCEDURES Final Re sult * MRI Internal Auditory Canal Brain W WO Contrast (02/02/2025 11:09 AM CDT) Anatomical Region Laterality Modality Head and Neck N/A Magnetic Resonan ce 02/02/2025 11:2 4 AM CDT Narrative 02/02/2025 11:34 AM CDT EXAM DESCRIPTION: MRI INTERNAL AUDITORY CANAL INCL BRAIN W WO CONTRAST REASON FOR STUDY: tinnitus AU Worsening tinnitus in both ears. Pulsating sound in both ears, worsening over the last few months. TECHNIQUE: Multiplanar imaging includes non-contrasted T1, T2, FLAIR, gradient echo/susceptibility-weighted images, diffusion with ADC map and post gadolinium contrast sequences. Additional thin slice images with and without gadolinium contrast acquired in the posterior fossa. Images stored on PACS. CONTRAST TYPE/DOSE: 16mL of GADOTERATE MEGLUMINE 0.5 MMOL/ML INTRAVENOUS SOLUTION (SO) injected via intravenous COMPARISON: MRI brain from an outside institution dated 10/20/2023. FINDINGS: There is no diffusion restriction suggest acute/recent infarction. No parenchymal susceptibility signal to indicate blood degradation products. The size and configuration of the ventricles and sulci are normal for the patient's age. There is no hydrocephalus. The basilar cisterns are maintained. Dedicated high-resolution sequences through the posterior fossa were obtained per protocol. Preservation of the expected T2 hyperintense signal through the inner ear structures on both sides. The bilateral cranial nerve 7 8 complex have a symmetric course and there is no enhancing mass in the right or left internal auditory canal. There is no enhancing mass in the right or left cerebellopontine angle cistern. A vascular loop extends to the right and left porous acusticus. Trace T2 hyperintensities in the mastoid air cells, [id number]-[id number]-stev-left. The bilateral globes are grossly symmetric in signal intensity and morphology. Minor mucosal thickening in the bilateral maxillary sinuses. IMPRESSION: 1. There is no enhancing mass in the right or left cerebellopontine angle cistern. 2. Other findings as above. THIS IS AN ELECTRONICALLY VERIFIED FINAL REPORT 02/02/2025 11:34 AM - Electronically signed by Jeremy Baron D.O. AP: AP Report ID: [id number] Reading Location: [id number] Procedure Note Jeremy Baron, DO - 02/02/2025 EXAM DESCRIPTION: MRI INTERNAL AUDITORY CANAL INCL BRAIN W WO CONTRAST REASON FOR STUDY: tinnitus AU Worsening tinnitus in both ears. Pulsating sound in both ears, worseningover the last few months. TECHNIQUE: Multiplanar imaging includes non-contrasted T1, T2, FLAIR,gradient echo/susceptibility-weighted images, diffusion with ADC map and post gadolinium contrast sequences. Additional thin slice images with andwithout gadolinium contrast acquired in the posterior fossa. Images stored onPAPixelOptics. CONTRAST TYPE/DOSE: 16mL of GADOTERATE MEGLUMINE 0.5 MMOL/ML INTRAVENOUS SOLUTION (SO) injected via intravenous COMPARISON: MRI brain from an outside institution dated 10/20/2023. FINDINGS: There is no diffusion restriction suggest acute/recent infarction. No parenchymal susceptibility signal to indicate blood degradationproducts. The size and configuration of the ventricles and sulci are normal for the patient's age. There is no hydrocephalus. The basilar cisterns are maintained. Dedicated high-resolution sequences through the posterior fossa wereobtained per protocol. Preservation of the expected T2 hyperintense signal throughthe inner ear structures on both sides. The bilateral cranial nerve 7 8complex have a symmetric course and there is no enhancing mass in the right orleft internal auditory canal. There is no enhancing mass in the right or left cerebellopontine angle cistern. A vascular loop extends to the right andleft porous acusticus. Trace T2 hyperintensities in the mastoid air cells, [id number]-voshfrq-ikge-left. The bilateral globes are grossly symmetric in signal intensity andmorphology. Minor mucosal thickening in the bilateral maxillary sinuses. IMPRESSION: 1. There is no enhancing mass in the right or left cerebellopontineangle cistern. 2. Other findings as above. THIS IS AN ELECTRONICALLY VERIFIED FINAL REPORT 02/02/2025 11:34 AM - Electronically signed by Jeremy Baron D.O. AP: HUSAM Report ID: [id number] Reading Location: [place] [address] [place] Callie Kent MD IMG MRI PROCEDURES Final Re sult * OCT, Retina - OU - Both Eyes (01/19/2025 12:59 PM CDT) Anatomical Region Laterality Modality Head Other Narrative 01/19/2025 12:59 PM CDT Right Eye Findings include normal observations. Left Eye Findings include normal observations. Notes Normal mean ganglion cell complex thickness OU (on [employer] OCT) us Callie Kent MD OPHTH TOMOGRAPHY Final Resu lt * OCT, Optic Nerve - OU - Both Eyes (01/19/2025 12:59 PM CDT) RNFL OS 94 micrometers CONTINUUM RNFL OD 101 micrometers CONTINUUM Anatomical Region Laterality Modality Head Other Narrative 01/19/2025 12:59 PM CDT Right Eye Reliability was good. Average RNFL thickness 101 micrometers. Left Eye Reliability was good. Average RNFL thickness 94 micrometers. Notes Improved mean RNFL thickness OU (from 122 microns OD, 104 microns OS on 08/30/2024) (Performed on [employer] Cirrus OCT) us Callie Kent MD OPHTH TOMOGRAPHY Final Resu lt from Last 3 Months Insurance [place] [id number] [place] [address] WORKERS COMPENSATION GENERIC * Guarantor: [employer] Account Type Relation to Patient Date of Phone Billing Address Workers Comp Employer [employer] [address] [place] [address] Care Teams Tobacco Curer Relationship Specialty Start Date End Date iRana Scott MD PCP - General Family Medicine 10/15/23 Drew Gibson OD [address] [place] [address] Referring Physician Optometry 01/07/24 Verena Rand NP [address] [place] [address] Nurse Practitioner Nurse Practitioner 02/24/24 Arnold Julio MD [address] [place] [address] Neurologist Neurology 08/30/24 Giorgi Mcgovern MD PhD [id number] [facility] [address] [place] [address] Consulting Physician Retina Ophthalmology 09/07/24 Isacc Mccauley MD [address] [place] [address] Consulting Physician Otolaryngology 01/19/25
--- OUTSIDE RECORDS SUMMARY | 2025-02-17 17:26 | XMS_ITS | Patient Health Record ---
Author Organization [facility] Address [address] [facility] [address] [place], [place] [id number] Care Team Providers Care Coating Operator Name Role Phone CHRISTOPHER CELIS MD Primary Care Provider Nataliia Orourke Unavailable [phone] ALLERGIES No Known Allergies REASON FOR REFERRAL No Information MEDICATIONS Medication SIG (Take, Route, Frequency, Duration) Notes Start Date End Date Status Folgard RX Vitamin B Complex with Folic Acid 1 tab(s) orally TWICE A DAY 02/14/2022 Active PROBLEMS Problem Type ICD Code Onset Dates Problem Status W/U Status Risk SNOMED Code Notes Problem Numbness of fingers of both hands (R20.0) Active confirmed 932716621 Problem Abnormal pigmentation (L81.9) Active confirmed 928725124 Problem 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) Active confirmed 916248111 Problem Positive JOHANNY (antinuclear antibody) (R76.8) Active confirmed [id number] PLAN OF TREATMENT Pending Test Test Name Order Date Protein C Activity 02/14/2022 Future Test Test Name Order Date Lupus Anticoagulant Comprehens 2 Anticardiolip Ab, IgA/G/M, Qn 04/29/2022 Beta-2 Glycoprotein I Ab,G,A,M 2 lab slip given 04/29/2022 Insurance Providers Payer Name Payer Address Payer Phone Subscriber Number Group Number Insured Name Patient Relationship to Insured Coverage Start Date Coverage End Date [facility] [address] [place] [phone] [id number] Johanna Baker Self - patient is the insured 9 MEDICAL (GENERAL) HISTORY Medical History History ICD Code migraine headache blurred vision vision - flashes vision - halos Double vision Ringing in ears anxiety high blood pressure rapid heartbeat frequent urination painful intercourse poor circulation Surgical History Surgery Date(Month/Year) Carpal Tunnel surgery 2006 cataract removal 2019
== END 2025-02-17 15:17 | disposition home or self-care (01) ==
PROVIDERS: PCP Family Medicine Adolescent Medicine; Visit Provider Student in an Organized Health Care Education/Training Program
DX: R31.9 Hematuria, unspecified (principal); R30.0 Dysuria; R10.20 Pelvic and perineal pain unspecified side
CPT/HCPCS: 74018

== ENCOUNTER 2025-03-28 11:44 | Outpatient (CLI) | payer OTHER, SELFPAY ==
--- NOTE | ~2025-03-28 | MM_ITS ---
EXAMINATION: MM screening kwan BI w marianela HISTORY: Screening TECHNIQUE: Craniocaudal and mediolateral oblique 3-D tomosynthesis images were obtained and synthetic 2-D images were generated. CAD analysis was submitted and interpreted. COMPARISON: Comparison to multiple prior studies sequentially, with oldest reviewed study dated 10/27/2019. BREAST PARENCHYMAL COMPOSITION: Dense: The breasts are heterogeneously dense, which may obscure small masses FINDINGS: There is no evidence of suspicious mass, calcification, or architectural distortion to suggest malignancy in either breast. There has been no suspicious interval change. IMPRESSION: 1. No mammographic evidence of malignancy. 2. Recommend routine screening mammography in one year. BI-RADS Category 1: Negative Reviewed, dictated and finalized at location O. AL ACCOUNT EXECUTIVE
--- OUTSIDE RECORDS SUMMARY | 2025-03-28 13:50 | XMS_ITS | Clinical Summary ---
Author Organization [facility] Address [address] [place] [address] Care Team Providers Care Underwriting Internship Name Role Phone Drew Gibson OD Unavailable [phone] Verena Rand INJECTION MOLDER Unavailable Arnold Julio MD Unavailable [phone] Giorgi Mcgovern MD PhD Unavailable Isacc Mccauley MD Unavailable [phone] Natividad Tafoya INJECTION MOLDER Primary Care Provider Allergies No known active allergies Medications lisinopriL (PRINIVIL,ZESTR IL) 5 mg tablet Take 1 tablet (5 mg total) by mouth daily 08/24/2024 Active progesterone (PROMETRIUM) 200 mg capsule Take 1 capsule (200 mg total) by mouth daily 07/01/2024 Active amLODIPine (NORVASC) 2.5 mg tablet Take 1 tablet (2.5 mg total) by mouth daily 01/24/2025 Active SUMAtriptan (IMITREX) 100 mg tablet Take 1 tablet (100 mg total) by mouth once as needed 09/21/2024 Active Active Problems Problem Noted Date Diagnosed Date Visual disturbances 03/26/2024 Assessment & Plan (03/26/2024 12:04 PM LINE SUPPLY): Assessment: - Follow-up from 01/07/24 for vision [...] 03/26/2024 Assessment & Plan (03/26/2024 11:58 AM LINE SUPPLY): Assessment: - Previously started on Topiramate (currently [...] 03/26/2024 Assessment & Plan (03/26/2024 11:58 AM LINE SUPPLY): Assessment: - Likely a component of migraine's and medication overuse - Currently using ibuprofen daily - MRI brain w wo at OSH unremarkable Plan: - Decrease ibuprofen use as medication overuse may be contributing - Evaluation for obstructive sleep apnea; to be arranged by patient's PCP Encounters Date Type Department Care Team Description 03/10/2025 [facility]phone [facility] [id number] [place] [address] 2nd [address] [place] [address] Cheng Earl MD 03/09/2025 [facility]phone [facility] [id number] [place] [address] [address] [place] [address] Cheng Earl MD 03/07/2025 [facility]phone [facility] [id number] [place] [address] 2nd Floor [address] [place] [address] Cheng Earl MD 03/03/2025 7:52 AM CDT - 03/03/2025 11:59 PM CDT Hospital Encounter [facility] [address] [place] [address] Calculus of kidney Discharge Disposition: Discharge to home or self care 03/02/2025 11:00 AM CDT Office Visit [facility] [address] [facility] 2nd Floor [address] [place] [address] Cheng Earl MD Right shoulder pain, unspecified chronicity (Primary Dx); Glenohumeral arthritis, right 03/02/2025 10:57 AM CDT - 03/02/2025 11:59 PM CDT Hospital Encounter [facility] [address] [place] [address] Right shoulder pain, unspecified chronicity Discharge Disposition: Discharge to home or self care 03/01/2025 Telephone [facility] Medicine Orthopaedic Surgery [address] [facility] 2nd Floor [address] [place] [address] Riana Grover RMA INTAKE FORM-RIGHT SHOULDER 02/03/2025 Results Follow-Up [facility] Medicine Ophthalmology [address] [facility] 6th [place] [id number] Callie Kent MD MRI Internal Auditory Canal Brain W WO Contrast 02/02/2025 9:50 AM CDT - 02/02/2025 11:59 PM CDT Hospital Encounter [facility] [address] [place] [address] Tinnitus of both ears Discharge Disposition: Discharge to home or self care 02/02/2025 9:50 AM CDT - 02/02/2025 11:59 PM CDT Hospital Encounter [facility] [address] [place] [address] Tinnitus of both ears; Optic disc edema Discharge Disposition: Discharge to home or self care 01/28/2025 Telephone [facility] Medicine Ophthalmology [address] [place] [address] Callie Kent MD order for MRV 01/19/2025 8:30 AM CDT Office Visit [facility] Medicine Ophthalmology [address] [facility] 2nd Floor, [address] [place] [address] Callie Kent MD Bilateral posterior uveitis (Primary Dx); Optic disc edema; Tinnitus of both ears 01/19/2025 8:20 AM CDT Imaging Exam [facility] Medicine Ophthalmology [address] [facility] 2nd Floor, [address] [place] [address] Visual disturbances; Unspecified disorder of [...] on file Legal Sex Female 3:02 AM LINE SUPPLY Gender Identity Female 05/27/2024 6:29 PM LINE SUPPLY Sexual Orientation Not on file Last Filed Vital Signs Vital Sign Reading Time Taken Comments Blood Pressure - - Pulse - - Temperature - - Respiratory Rate - - Oxygen Saturation - - Inhaled Oxygen Concentration - - Weight 83.9 kg (185 lb) 03/02/2025 11:36 AM CDT Height 157.5 cm (5' 2) 03/02/2025 11:36 AM CDT Body Mass Index 33.84 03/02/2025 11:36 AM CDT Plan of Treatment Health Maintenance Due Date Last Done Comments Breast Cancer Screening-Mammogram 1978 Cervical Cancer Screening 1978 Colon Cancer Screening-Colonoscopy 1978 Depression Screening 1978 Hepatitis C Screening 1978 Hepatitis B Screening 1996 Regular Well Visit/Exam 18-64 1996 Influenza Vaccine (#1) 2025 03/05/2021 DTaP/Tdap/Td Vaccine (2 - Td or Tdap) 01/06/2035 01/06/2025 HPV Vaccines Aged Out No longer eligi ble based on patient's age to complete this topic Pneumococcal vaccine <65 Aged Out No longer eligible based on patient's age to complete this topic Procedures Procedure Name Priority Date/Time Associated Diagnosis Comments CT ABDOMEN PELVIS WO CONTRAST Schedule Routine, Read Routine (OP Routine) 03/03/2025 8:05 AM CDT Calculus of kidney XR SHOULDER RIGHT 2 OR MORE VIEWS Schedule Routine, Read Routine (OP Routine) 03/02/2025 11:04 AM CDT Right shoulder pain, unspecified chronicity MRV HEAD W CONTRAST Schedule Routine, Read [...] edema from Last 3 Months Results * CT Abdomen Pelvis WO Contrast (03/03/2025 8:05 AM CDT) Anatomical Region Laterality Modality Body N/A Computed Tomogra phy 03/03/2025 9:01 AM CDT Impressions 03/03/2025 9:01 AM CDT No acute abnormality. No hydronephrosis. No obstructing renal or ureteral stones. Electronically signed by: Alex Moeller M.D. Narrative 03/03/2025 9:01 AM CDT EXAMINATION: CT ABDOMEN PELVIS WO CONTRAST HISTORY: CALCULUS OF KIDNEY TECHNIQUE: Transaxial computed tomographic images of the abdomen and pelvis were obtained without intravenous contrast according to the standard protocol. COMPARISON: None. FINDINGS: Lack of intravenous contrast decreases sensitivity for detection of pathology. Findings within these confines. Lung bases: No significant abnormality. Liver: No concerning lesions. Biliary: No significant biliary duct dilatation. Pancreas: No significant duct dilatation. Spleen: No splenomegaly. Adrenals: No nodule. Kidneys: No hydronephrosis. No no obstructing nephroureterolithiasis. Small pelvic phlebolith adjacent to the right ureterovesicular junction (such as 6; 74). Bladder: Decompressed. Reproductive: Intrauterine device in place. Anteflexed uterus. No concerning adnexal lesion. Gastrointestinal: Diffuse moderate colonic stool burden. No significant bowel distention or wall thickening. Normal appendix. Vessels: No abdominal aortic aneurysm. Lymph nodes: No pathologically enlarged lymph nodes. Peritoneum/Retroperitoneum: Trace free fluid in the pelvis, likely physiologic. Bones/Soft Tissues: No acute displaced fracture. No aggressive-appearing osseous lesion. Procedure Note Alex Moeller MD - 03/03/2025 EXAMINATION: CT ABDOMEN PELVIS WO CONTRAST HISTORY: CALCULUS OF KIDNEY TECHNIQUE: Transaxial computed tomographic images of the abdomen and pelvis were obtained without intravenous contrast according to the standard protocol. COMPARISON: None. FINDINGS: Lack of intravenous contrast decreases sensitivity for detection of pathology. Findings within these confines. Lung bases: No significant abnormality. Liver: No concerning lesions. Biliary: No significant biliary duct dilatation. Pancreas: No significant duct dilatation. Spleen: No splenomegaly. Adrenals: No nodule. Kidneys: No hydronephrosis. No no obstructing nephroureterolithiasis. Small pelvic phlebolith adjacent to the right ureterovesicular junction (such as 6; 74). Bladder: Decompressed. Reproductive: Intrauterine device in place. Anteflexed uterus. No concerning adnexal lesion. Gastrointestinal: Diffuse moderate colonic stool burden. No significant bowel distention or wall thickening. Normal appendix. Vessels: No abdominal aortic aneurysm. Lymph nodes: No pathologically enlarged lymph nodes. Peritoneum/Retroperitoneum: Trace free fluid in the pelvis, likely physiologic. Bones/Soft Tissues: No acute displaced fracture. No aggressive-appearing osseous lesion. IMPRESSION: No acute abnormality. No hydronephrosis. No obstructing renal or ureteral stones. Electronically signed by: Alex Moeller M.D. Damaris CARLSON IM CT PROCEDURES Fi nal Result * XR Shoulder Right 2 or More Views (03/02/2025 11:04 AM CDT) Anatomical Region Laterality Modality Upper Extremities, Shoulder Right Comp uted Radiography 03/02/2025 11:3 4 AM CDT Impressions 03/02/2025 11:34 AM CDT Sequelae of labral repair with mild right acromioclavicular and glenohumeral joint osteoarthritis. Electronically signed by: Ankit Calix M.D. Narrative 03/02/2025 11:34 AM CDT EXAMINATION: XR SHOULDER RIGHT 2 OR MORE VIEWS HISTORY: Right shoulder pain COMPARISON: 05/03/2024 MR FINDINGS: Slight posterior decentering of the humeral head with respect to the glenoid. There is sequelae of glenoid labral repair. No acute fracture or dislocation. Mild acromioclavicular and glenohumeral osteoarthritis. Procedure Note Ankit Calix MD - 03/02/2025 EXAMINATION: XR SHOULDER RIGHT 2 OR MORE VIEWS HISTORY: Right shoulder pain COMPARISON: 05/03/2024 MR FINDINGS: Slight posterior decentering of the humeral head with respect to the glenoid. There is sequelae of glenoid labral repair. No acute fracture or dislocation. Mild acromioclavicular and glenohumeral osteoarthritis. IMPRESSION: Sequelae of labral repair with mild right acromioclavicular and glenohumeral joint osteoarthritis. Electronically signed by: Ankit Calix M.D. Cheng Earl MD IM XR PROCEDURES Fin al Result * MRV Head W Contrast (02/02/2025 11:09 [...] Jeremy Baron D.O. AP: AP Report ID: [id number] Reading Location: [id number] Procedure Note Jeremy Baron, DO - 02/02/2025 [...] Jeremy Baron D.O. AP: AP Report ID: [id number] Reading Location: [place] [address] Callie Kent MD IMG MRI PROCEDURES Final [...] T2 hyperintensities in the mastoid air cells, [id number]-left. The bilateral globes are grossly symmetric in signal intensity and morphology. Minor mucosal thickening in the bilateral maxillary sinuses. IMPRESSION: 1. There is no enhancing mass in the right or left cerebellopontine angle cistern. 2. Other findings as above. THIS IS AN ELECTRONICALLY VERIFIED FINAL REPORT 02/02/2025 11:34 AM - Electronically signed by Jeremy Baron D.O. AP: HUSAM Report ID: [id number] Reading Location: [id number] Procedure Note Jeremy Baron, DO - 02/02/2025 [...] acquired in the posterior fossa. Images stored [employer]. CONTRAST TYPE/DOSE: 16mL of GADOTERATE MEGLUMINE 0.5 [...] T2 hyperintensities in the mastoid air cells, [id number]-prkk-left. The bilateral globes are grossly symmetric in signal intensity andmorphology. Minor mucosal thickening in the bilateral maxillary sinuses. IMPRESSION: 1. There is no enhancing mass in the right or left cerebellopontineangle cistern. 2. Other findings as above. THIS IS AN ELECTRONICALLY VERIFIED FINAL REPORT 02/02/2025 11:34 AM - Electronically signed by Jeremy Baron D.O. AP: HUSAM Report ID: [id number] Reading Location: [place] [address] [place] Callie Kent MD IMG MRI PROCEDURES [...] Resu lt from Last [address] [place] [address] [place] [id number] [employer] Care Teams Underwriting Internship Relationship Specialty Start Date End Date Natividad Tafoya NP [address] [place] [id number] PCP - General Nurse Practitioner 03/21/25 Drew Gibson, DOROTHEA [address] [place] [address] Referring Physician Optometry 01/07/24 Verena Rand NP [address] [place] [id number] Nurse Practitioner Nurse Practitioner 02/24/24 Arnold Julio MD [address] [place] [address] Neurologist Neurology 08/30/24 Giorgi Mcgovern MD PhD [address] [place] [address] Consulting Physician Retina Ophthalmology 09/07/24 Isacc Mccauley MD [address] [place] [address] Consulting Physician Otolaryngology 01/19/25
--- OUTSIDE RECORDS SUMMARY | 2025-03-28 13:50 | XMS_ITS | Data Portability ---
Author Organization [facility] Address [address] [place] [address] Care Team Providers Care Society Editor Name Role Phone BOSTON TAFOYA Primary Care Provider [phone] Assessment No assessment recorded. Plan of Treatment Reminders Order Date Submit Date Provider Last Modified By Organization Details Last Modified Time Details Appointments ANY 15 2024 08:45A M ROHIT BYRD Not available Not available Not available Lab None recorded. Referral audiologi st referral 2024 025 ARSEN Velasquez Formerly [facility], [address] [place], [address], 02/08/2025 14:38:38 Procedures None recorded. Surgeries None recorded. Imaging None recorded. Medication Orders None recorded. Patient TargetsNo targets recorded. Patient InstructionsNo instructions recorded. Reason for Referral Marine Designer Referral for Andre ateral tinnitus Referring Physician: Isacc Mccauley, Otolaryngology, Encounter Date: 01/25/2025 Mailing Clerk Referral for Dysphagia Referring Physician: [facility], Encounter Date: 03/21/2025 Endocrinology Referral for F lillian Patient was prescribed testosterone by performance clinic and progesterone therapy by outside cutter Referring Physician: Family Jeronimo Medicine, Encounter Date: 03/21/2025 Problems No Known Problems Procedures Surgical History Date Name Laterality Status Provider Name and Address Organization Details Recorded Time 07/13/19 25 repair of shoulder completed Rina Rascon MA [facility] 03/21/2025 14:24:51 cataract extraction and implantation of intraocular lens completed Debo Quezada [place] [facility] 01/25/2025 10:04:34 injection of carpal tunnel completed Rina Rascon [place] [facility] 03/21/2025 14:23:37 Imaging Results None recorded. Procedure Notes None recorded. Medical Equipment None Reported. Allergies No known drug allergies Medications Name Sig Start Date Stop Date Status Note LastModified by Organization Details LastModified Time oxybutynin chloride ER 10 mg tablet,exte nded release 24 hr TAKE 1 TABLET BY MOUTH DAILY 03/21 completed Not Available Not Available Not Available hydrocodone 5 mg-acetamin ophen 325 mg tablet TAKE 1 TABLET BY MOUTH EVERY 8 HOURS NEEDED FOR PAIN 03/21 completed Not Available Not Available Not Available ondansetron HCl 4 mg tablet TAKE 1 TABLET BY MOUTH EVERY 6 HOURS 03/21 completed Not Available Not Available Not Available prednisone 20 mg tablet TAKE 3 TABLETS BY MOUTH DAILY 03/21 completed Not Available Not Available Not Available amlodipine 2.5 mg tablet TAKE 1 TABLET BY MOUTH DAILY active Not Available Not Available No t Available oxycodone-a cetaminophe n 5 mg-325 mg tablet TAKE 1 TABLET BY MOUTH EVERY 6 HOURS NEEDED FOR PAIN 03/21 completed Not Available Not Available Not Available estradiol 1 mg tablet TAKE 1 TABLET BY MOUTH DAILY 03/21 completed Not Available Not Available Not Available progesteron e micronized 200 mg capsule TAKE 1 CAPSULE BY MOUTH EVERY DAY AT BEDTIME 03/21 completed Not Available Not Available Not Available lisinopril 5 mg tablet TAKE 1 TABLET BY MOUTH DAILY 03/21 completed Not Available Not Available Not Available estradiol 0.01% (0.1 mg/gram) vaginal cream USE 1 GRAM VAGINALLY 3 TIMES A WEEK 03/21 completed Not Available Not Available Not Available naproxen 500 mg tablet TAKE 1 TABLET BY MOUTH TWICE DAILY 03/21 completed Not Available Not Available Not Available progesteron e micronized 100 mg capsule TAKE 1 CAPSULE BY MOUTH EVERY NIGHT active Not Available Not Available No t Available bupropion HCl XL 150 mg 24 hr tablet, extended release Take 1 tablet every day by oral route for 30 days. 2024 active Not Available Not Available Not Avai lable Vitals Date Recorded Body height Body mass index (BMI) Body weight Heart rate Respiratory rate Body temperature Systolic And Diastolic Provider Name and Address Organization Details Last Updated DateTime 5 157.48 cm 34.1 kg/m2 10426.9 8 g 105 /min 16 /min 98.6 [degF] 113/79 mm[Hg] Debo Quezada MA [facility] 5 10:02:08 Date Recorded Body height Body mass index (BMI) Body weight Oxygen saturation Heart rate Respiratory rate Body temperature Systolic And Diastolic Provider Name and Address Organization Details Last Updated DateTime 5 157.48 cm 36.4 kg/m2 52297.1 6 g 96 % 75 /min 16 /min 97.3 [degF] 126/87 mm[Hg] Rina Rascon MA [facility] 14:29:08 Social History Question Answer Notes LastModified by Organizat ion Details LastModified Time Tobacco Smoking Status Former Smoker Quit 2014 Rina Rascon [facility] 03/21/2025 14:18:48 Do You Have An Advance Directive? No Information not available 01/25/2025 Are You Blind Or Do You Have Difficulty Seeing? No Cateract Surgery Rt & Lt Information not available 03/21/2025 What Is Your Level Of Caffeine Consumption? Heavy Coffee Information not available 03/21/2025 In The 14 Days Before Symptom Onset, Have You Had Close Contact With A Laboratory-confir med COVID-19 While That Case Was Ill? No Information not available 01/25/2025 In The 14 Days Before Symptom Onset, Have You Had Close Contact With A Person Who Is Under Investigation For COVID-19 While That Person Was Ill? No Information not available 01/25/2025 Have You Been To An Area Known To Be High Risk For COVID-19? No Information not available 01/25/2025 Are You Deaf Or Do You Have Serious Difficulty Hearing? No Has Buzzing In Her Ears Information not available 03/21/2025 What Type Of Diet Are You Following? SPECIFIC 1 Meal A Day Information not available 03/21/2025 Are There Any Guns Present In Your Home? Yes Information not available 03/21/2025 What Was The Date Of Your Most Recent Tobacco Screening? 03/21/2025 Information not available 03/21/2025 How Many Children Do You Have? 2 Information not available 03/21/2025 Do You Have Any Pets? Yes Information not available 01/25/2025 Do You Use Protection During Sex? No Information not available 03/21/2025 What Is Your Relationship Status? Information not available 01/25/2025 Do You Use Your Seat Belt Or Car Seat Routinely? Yes Information not available 03/21/2025 Are You Sexually Active? Yes Information not available 03/21/2025 Do You Have Smoke And Carbon Monoxide Detectors In Your Home? Yes Information not available 03/21/2025 At What Age Did You Start Smoking Tobacco? 16 Information not available 03/21/2025 Are You Passively Exposed To Smoke? No Information no t available 03/21/2025 How Much Tobacco Do You Smoke? 0.25 PPD Information not available 03/21/2025 Do You Use Sunscreen Routinely? No Information not available 03/21/2025 Has Tobacco Cessation Counseling Been Provided? No Information not available 03/21/2025 Sex: Female Functional Status Question Answer Note LastModified by Organizat ion Details LastModified Time Do you use any illicit or recreational drugs? No Information not available 01/25/2025 What is your level of alcohol consumption? Occasional Information not available 01/25/2025 Are you currently employed? Yes [facility] Information not available 03/21/2025 Are you able to care for yourself independently? Yes Information not available 03/21/2025 What type of noise exposure are you exposed to? Industrial Information not available 01/25/2025 Mental Status Question Answer Note LastModified by Organization D etails LastModified Time Do you feel stressed (tense, restless, nervous, or anxious, or unable to sleep at night)? [id number] Information not available 01/25/2025 Family History Relationship Description Onset Age of this Age Resolved Age Notes LastModified by Organization Details LastModified Time Mother Malignant neoplasm of lung Not available 2024 14:15:21 Maternal Grandfather Malignant neoplasm of colon Not available 2024 14:15:38 Maternal Aunt Malignant neoplasm of uterus Not available 2024 14:15:57 Unspecified Relation History of cholecystect becki family histor y Not available 03/21/2025 14:16:22 Medical History Condition Response Coronary Artery Disease N Other N Atrial Fibrillation N High Blood Pressure Y Emphysema N Glaucoma N Depression Y COPD N Blood Clots N Anesthesia Complications N Anxiety Disorder Y Muscle, Joint, or Bone Problems Y Hearing Loss N Arthritis Y Acid Reflux (GERD) N Cancer N Stroke N ADHD Y High Cholesterol N Liver Disease N Fibromyalgia N Schizophrenia N Headaches Y Speech Delay N Kidney Disease N Allergies/Hayfever N Heart Problems Y Heart Conditions N Migraines N Thyroid Problems N Kidney or Bladder Problems N GI Problems N Developmental Delay N Eating Disorder N Skin Problems Y Anemia N Immune System Disorder N Heart Attack ([place]) N Diabetes N Bleeding Disorder N Seizures/Epilepsy N Tuberculosis N Hyperlipidemia N Asthma N Allergies Y Substance Abuse N Sleep Disorder N GERD/Reflux N Hepatitis N Heart Disease N Hypertension Y Heart Failure N Osteoporosis N Gynecological HistoryNo gynecological history recorded. Obstetrics History GPAL:G 0 P 0 0 0 0 Immunizations Vaccine Type Date Status Note Provider Nam e and Address Organization Details Recorded Time Tdap 01/06/2025 completed Not Available [employer] 03/21/2025 13:51:12 Past Encounters Encounter ID Performer Location Encounter Start Date Encounter Closed Date Diagnosis/Indication Diagnosis SNOMED-CT Code Diagnosis ICD10 Code Diagnosis IMO Codes Diagnosis [id number] [facility] [address] [place] [address] 01/25/2025 09:46:22 01/26/2025 12:14:35 Bilateral tinnitus 0941145910 102 H93.13 [id number] follow after audio Health Concerns Section Related Observation LastModified by Organization Detai ls LastModified Time None Recorded Concern Status LastModified by Organization Details LastModified Time None Recorded Advance Directives Directive N: Payers Insurance Date Sequence Insurance Name Policy Number Policy Lira Covered Member ID Lira Member ID Guarantor Name 01/25/2025 1 [employer] [place] - DOS ON OR AFTER 2020 (MEDICAID REPLACEMENT - HMO) Johanna Baker [id number] Johanna Baker 03/21/2025 1 [facility] - [employer] (PPO) Johanna Baker [id number] Johanna Baker Notes Date Note Type Note Provider Name and Address Organization Details Recorded Time 01/25/2025 text/html ROS as noted in the HPI Pt complaining of ringing in her ears after having shoulder surgery. She does not have any other aural symptoms. She has had pulsating in the past but not now Isacc Mccauley MD Attn: [address] [place], [address], [facility] 01/25/2025 10:19:02 03/21/2025 text/html Patient presents to the clinic to establish care. Patient was previously established with Dr. Scott for primary care.Other providers:Dr. Regalado-Production Material Coordinator -Medical Hx/Surgical Hx: ADHD, anxiety, depression, hypertension, cataract implantation, bilateral carpal tunnel surgical repair, shoulder surgical repair, former tobacco user, and 2 pregnancies-2 vaginal deliveries-2 living children. -Family hx:Mother: -lung cancerFather: living-healthyMatern al Grandmother: -dementiaMat ernal Grandfather: -colon cancerPaternal Grandmother: -blood clotPaternal Grandfather: -old age -Tobacco/Drug/Alcoho l Use:Patient reports she started using tobacco at age 16. She quit in 2014. She was a 1/4PPD smoker.Denies history of drug use.Reports occasional alcohol use. Chicken pox: Denies history of chicken pox.Marital status: Sexually active: yes Occupation: [employer] Highest level of education: 10th grade Allergies: NKDA Not Available Not Available Not Available OBGyn Episode No OBEpisode recorded.
--- OUTSIDE RECORDS SUMMARY | 2025-03-28 13:50 | XMS_ITS | Continuity of Care Document ---
Author Organization [facility] Address [address] [place] [address] Care Team Providers Care Tailor Men'S Ready To Wear Name Role Phone BOSTON PEMBERTON Primary Care Provider [phone] Assessment No assessment recorded. Plan of Treatment Reminders Order Date Submit Date Provider Last Modified By Organization Details Last Modified Time Details Appointments ANY 15 2024 08:45A M ZULEIMA BYRD- Not available Not available Not available Lab None recorded. Referral audiologi st referral 2024 025 ARSEN Ron [facility], [address] [place], [address], 02/08/2025 14:38:38 Procedures None recorded. Surgeries None recorded. Imaging None recorded. Medication Orders None recorded. Patient TargetsNo targets recorded. Patient InstructionsNo instructions recorded. Reason for Referral Tailor Men'S Ready To Wear Referral for Andre ateral tinnitus Referring Physician: Isacc Mccauley, Otolaryngology, Encounter Date: 01/25/2025 Problems No Known Problems Procedures Surgical History Date Name Laterality Status Provider Name and Address Organization Details Recorded Time 07/13/19 25 repair of shoulder completed Rina Rascon MA [facility] 03/21/2025 14:24:51 cataract extraction and implantation of intraocular lens completed Debo Quezada MA [facility] 01/25/2025 10:04:34 injection of carpal tunnel completed Rina Rascon MA [facility] 03/21/2025 14:23:37 Imaging Results None recorded. Procedure [...] and Address Organization Details Last Updated DateTime 157.48 cm 34.1 kg/m2 44770.9 8 g 105 /min 16 /min 98.6 [degF] 113/79 mm[Hg] Debo Quezada [place] - [facility] 10:02:08 Social History Question Answer Notes LastModified by Organizat ion Details LastModified Time Tobacco Smoking Status Former Smoker Quit 2014 JOJO Saldivar, [facility] 03/21/2025 14:18:48 Do You Have An Advance [...] available 01/25/2025 Are you currently employed? Yes [facility] Information not available 03/21/2025 Are you able to care for yourself independently? Yes Information not available 03/21/2025 What type of noise exposure are you exposed to? Industrial Information not available 01/25/2025 Mental Status Question Answer Note LastModified by Organization D etails LastModified Time Do you feel stressed (tense, restless, nervous, or anxious, or unable to sleep at night)? [id number] Information not available 01/25/2025 Family History Relationship [...] N High Blood Pressure Y Emphysema N Depression Y COPD N Blood Clots N Glaucoma N Anesthesia Complications N Anxiety Disorder Y Muscle, Joint, or Bone Problems Y Arthritis Y Hearing Loss N Acid Reflux (GERD) N Cancer N Stroke N ADHD Y High Cholesterol N Liver Disease N Schizophrenia N Fibromyalgia N Headaches Y Speech Delay N Kidney Disease N Allergies/Hayfever N Heart Problems Y Heart Conditions N Migraines N Thyroid Problems N Kidney or Bladder Problems N Developmental Delay N GI Problems N Skin Problems Y Eating Disorder N Anemia N Immune System Disorder N Heart Attack ([place]) N Diabetes N Bleeding Disorder N Seizures/Epilepsy N Tuberculosis N Hyperlipidemia N Allergies Y Asthma N Substance Abuse N Sleep Disorder N GERD/Reflux N Hepatitis N Heart Disease N Hypertension Y Osteoporosis N Heart Failure N Gynecological HistoryNo gynecological history recorded. Obstetrics History GPAL:G 0 P 0 0 0 0 Immunizations Vaccine Type Date Status Note Provider Nam e and Address Organization Details Recorded Time Tdap 01/06/2025 completed Not Available [employer] 03/21/2025 13:51:12 Past Encounters Encounter ID Performer Location Encounter Start Date Encounter Closed Date Diagnosis/Indication Diagnosis SNOMED-CT Code Diagnosis ICD10 Code Diagnosis IMO Codes Diagnosis Note [id number] Isacc Mccauley MD [facility] (Adult Med) [address] [place] [address] 01/25/2025 09:46:22 01/26/2025 12:14:35 Bilateral tinnitus [id number] 102 H93.13 [id number] follow after audio Health Concerns Section Related Observation LastModified by Organization Detai ls LastModified Time None Recorded Concern Status LastModified by Organization Details LastModified Time None Recorded Payers Encounter Date Sequence Insurance Name Policy Number Policy Lira Covered Member ID Lira Member ID Guarantor Name 01/25/2025 1 [facility] Johanna Olivia [id number] Johanna Olivia Notes Date Note Type Note Provider Name and Address Organization Details Recorded Time 01/25/2025 text/html ROS as noted in the HPI Pt complaining of ringing in her ears after having shoulder surgery. She does not have any other aural symptoms. She has had pulsating in the past but not now Isacc Mccauley MD Attn: [address] [facility], [place], [address], [facility] 01/25/2025 10:19:02 OBGyn Episode No OBEpisode recorded.
--- OUTSIDE RECORDS SUMMARY | 2025-03-28 13:50 | XMS_ITS | Clinical Summary ---
Author Organization [facility] Address [address] [place] [address] Phone Care Team Providers Care Wet Pan Mixer Name Role Phone Riana Scott MD Primary Care Provider [phone] Allergies No known active allergies Medications medroxyPROGEST [...] Years Used Date Smoking Tobacco: Former Cigarettes 0 Q uit: 2016 Smokeless Tobacco: Never Tobacco [...] Comments Blood Pressure 169/111 03/27/2022 11:30 AM PATTERNMAKER WOOD Pulse 86 03/27/2022 11:30 AM PATTERNMAKER WOOD Temperature - - Respiratory Rate - - Oxygen Saturation - - Inhaled Oxygen Concentration - - Weight 97.5 kg (215 lb) 03/27/2022 11:30 AM PATTERNMAKER WOOD Height 160 cm (5' 3) 03/27/2022 11:30 AM PATTERNMAKER WOOD Body Mass Index 38.09 03/27/2022 11:30 AM PATTERNMAKER WOOD Plan of Treatment Health Maintenance Due Date [...] patient's age to complete this topic Insurance [facility] [id number] POS II Care Teams Wet Pan Mixer Relationship Specialty Start Date End Date Riana Scott MD [address] [place] [address] PCP - General Family Practice 03/27/22
== END 2025-03-28 11:45 | disposition home or self-care (01) ==
PROVIDERS: PCP Nurse Practitioner Family; Visit Provider Obstetrics & Gynecology
DX: Z12.31 Encounter for screening mammogram for malignant neoplasm of breast (principal)
CPT/HCPCS: 77063; 77067